=== PATIENT | male | born 1950 | race Caucasian/White ===

== ENCOUNTER 2018-10-23 13:14 | Inpatient (IN) | payer MEDICARE ==
--- NOTE | 2018-10-23 13:29 | ED ---
Respiratory - HPI Summary HPI Summary: Pt is a 68 y/o male who presents to the ED c/o SOB. Several weeks ago he was diagnosed with a right-sided PTX at 20-30% at [facility] without intervention. Today he went to his PCP for increased SOB and constant cough and was sent to [place]. Pt rates his pain as a 4/10 in severity in his right side , and states coughing and movement make the pain worse. An XR at [facility] revealed a worsening PTX, so he was sent here for a possible chest tube placement. He is on 3L O2 NC at home. PMHx COPD, sleep apnea, sarcoidosis. Pt is a former smoker. - History of Current Complaint Chief Complaint: EDShortnessOfBreath Stated Complaint: ACUTE SOB PER EMS Time Seen by Provider: 10/23/18 13:24 Hx Obtained From: Patient Onset/Duration: Gradual Onset, Lasting Weeks - 2-3, Worse Since Timing: Constant Current Severity: Moderate Pain Intensity: 4 Character: Cough (Nonproductive), Dyspnea at Rest Sputum Amount: None Aggravating Factor(s): Movement, Other - coughing Alleviating Factor(s): Nothing Associated Signs and Symptoms: SOB Related History: Similar Episode/Dx as - diagnosed PTX - Allergy/Home Medications Allergies/Adverse Reactions: Allergies Allergy/AdvReac Type Severity Reaction Status Date / Time guaifenesin [From Mucinex] Allergy Rash And Verified 10/23/18 13:40 Itching Iodinated Contrast- Oral and Allergy Rash And Verified 10/23/18 13:40 IV Dye Itching Home Medications: Home Medications Albuterol HFA INHALER* [Ventolin HFA Inhaler*] 1 puff INH QID 10/23/18 [History Confirmed 10/23/18] Benzonatate CAP* [Tessalon 100 MG CAP*] 200 mg PO TID 10/23/18 [History Confirmed 10/23/18] Carvedilol TAB* [Coreg TAB*] 25 mg PO DAILY 10/23/18 [History Confirmed 10/23/18 ] Fluticasone-Salmeterol 250-50* [Advair Diskus 250-50*] 1 puff INH BID 10/23/18 [ History Confirmed 10/23/18] Insulin Detemir [Levemir Flextouch] 40 unit SUBCUT 1200 10/23/18 [History Confirmed 10/23/18] Lisinopril TAB* [Prinivil TAB*] 10 mg PO DAILY 10/23/18 [History Confirmed 10/23] Rosuvastatin (NF) [Crestor] 20 mg PO DAILY 10/23/18 [History Confirmed 10/23/18] Sitagliptin Phos/Metformin HCl [Janumet 50-1000 mg] 1 tab PO BID 10/23/18 [ History Confirmed 10/23/18] oxyCODONE/Acetamin 5/325 MG* [Percocet 5/325 TAB*] 1 tab PO Q4H PRN 10/23/18 [ History Confirmed 10/23/18] PMH/Surg Hx/FS Hx/Imm Hx Endocrine/Hematology History: Reports: Hx Diabetes, Other Endocrine/ Hematological Disorders - sarcoidosis Cardiovascular History: Reports: Hx Hypertension Respiratory History: Reports: Hx Chronic Obstructive Pulmonary Disease (COPD), Hx Sleep Apnea, Other Respiratory Problems/Disorders - PTX History: Denies: Hx Dialysis, Hx Renal Disease - Surgical History Surgery Procedure, Year, and Place: Lymph node removal right side thoracic cavity 1978, cholecystectomy , appendectomy as a child Infectious Disease History: No Infectious Disease History: Denies: Traveled Outside the [place] in Last 30 Days - Family History Known Family History: Positive: Diabetes - Social History Alcohol Use: None Hx Substance Use: Yes Substance Use Type: Reports: Prescribed Hx Tobacco Use: Yes Smoking Status (MU): Former Smoker Review of Systems Positive: Shortness Of Breath, Cough Positive: Myalgia - pain to right side All Other Systems Reviewed And Are Negative: Yes Physical Exam - Summary Physical Exam Summary: Appearance: The patient is well-nourished in no acute distress and in no acute pain. Skin: The skin is warm and dry and skin color reflects adequate perfusion. HEENT: The head is normocephalic and atraumatic. The pupils are equal and reactive. The conjunctivae are clear and without drainage. Nares are patent and without drainage. Mouth reveals moist mucous membranes and the throat is without erythema and exudate. The external ears are intact. The ear canals are patent and without drainage. The tympanic membranes are intact. Neck: The neck is supple with full range of motion and non-tender. There are no carotid bruits. There is no neck vein distension. Respiratory: Chest is non-tender. Lungs are clear to auscultation and breath sounds are markedly decreased on the right side. Cardiovascular: Heart is regular rate and rhythm. There is no murmur or rub auscultated. There is no peripheral edema and pulses are symmetrical and equal. Abdomen: The abdomen is soft and non-tender. There are normal bowel sounds heard in all four quadrants and there is no organomegaly palpated. Musculoskeletal: There is no back tenderness noted. Extremities are non-tender with full range of motion. There is good capillary refill. There is no peripheral edema or calf tenderness elicited. Neurological: Patient is alert and oriented to person, place and time. The patient has symmetrical motor strength in all four extremities. Cranial nerves are grossly intact. Deep tendon reflexes are symmetrical and equal in all four extremities. Psychiatric: The patient has an appropriate affect and does not exhibit any anxiety or depression. Triage Information Reviewed: Yes Vital Signs On Initial Exam: Initial Vitals Temp Pulse Resp BP Pulse Ox 98.0 F 85 26 148/76 90 10/23/18 13:19 10/23/18 13:19 10/23/18 13:19 10/23/18 13:19 10/23/18 13:19 Vital Signs Reviewed: Yes Diagnostics - Vital Signs Vital Signs Temp Pulse Resp BP Pulse Ox 10/23/18 13:19 98.0 F 85 26 148/76 90 - Laboratory Lab Statement: Any lab studies that have been ordered have been reviewed, and results considered in the medical decision making process. - Radiology CXR Radiology Interpretation Completed By: Radiologist Summary of Radiographic Findings: Persistent large RIGHT pneumothorax without associated mediastinal shift. ED physician reviewed radiology report. Disposition - Course Course Of Treatment: Mr. Khalil was sent over from [place] for a right-sided pneumothorax. He apparently was short of breath and went to the hospital on the first where he was noted to have a right-sided pneumothorax that was moderate. He was kept overnight and discharged. A repeat chest x-ray on the sixth still showed a moderate pneumothorax. He got more short of breath and went to the emergency department today where he was noted to have worsened pneumothorax. He was transferred over here for chest tube. Dr. Crenshaw was contacted came to the department and placed a Heimlich valve. He recommended admission to the hospitalist service overnight. - Diagnoses Provider Diagnoses: Pneumothorax - Physician Notifications Discussed Care Of Patient With: Linus Crenshaw Time Discussed With Above Provider: 17:10 Instructed by Provider To: Other - Dr. Crenshaw placed a Heimlich valve. He recommends admission and to get a second CXR in an hour to check for improvement. Dr. Arroyo accepts pt for admission. Discharge - Sign-Out/Discharge Documenting (check all that apply): Patient Departure - Admit Patient Received Moderate/Deep Sedation with Procedure: No - Discharge Plan Condition: Improved Disposition: ADMITTED TO [facility] Referrals: Josh Robert MD [Primary Care Provider] - - Billing Disposition and Condition Condition: IMPROVED Disposition: Admitted to [facility] - Attestation Statements Document Initiated by Bubbaibe: Yes Documenting Scribe: Allie Rubio Provider For Whom Scribe is Documenting (Include Credential): Manan Mercado MD Scribe Attestation: Allie Escalante, scribed for Manan Mercado MD on 10/23/18 at 1808. Scribe Documentation Reviewed: Yes Provider Attestation: The documentation as recorded by the Allie samano accurately reflects the service I personally performed and the decisions made by , Manan Mercado MD Status of Scribe Document: Viewed
[2018-10-23] MEDS ORDERED: Benzonatate CAP* 100 MG PO ONE (13:30)
[2018-10-23] MEDS ORDERED: Morphine 10 MG/ML VIAL (1 ml) IV ONE (17:41)
[2018-10-23] MEDS ORDERED: Acetaminophen TAB* 325 MG PO PRN (20:57)
[2018-10-23] MEDS ORDERED: Benzonatate CAP* 100 MG PO PRN (20:59)
[2018-10-23] MEDS ORDERED: Dextrose 50% Syringe 50 ML* 25 GM/50 ML SYRINGE IV PUSH PRN (21:14)
[2018-10-23] MEDS: oxyCODONE TAB* 5 MG TAB PO PRN (22:03)
--- NOTE | 2018-10-23 23:09 | HP ---
CC: Dr. Mildred Robert * HISTORY AND PHYSICAL: DATE OF ADMISSION: 10/23/18 PRIMARY CARE PROVIDER: Dr. Mildred Robert. CHIEF COMPLAINT: Shortness of breath. HISTORY OF PRESENT ILLNESS: Mr. Khalil is a 68-year-old male who states approximately 2 weeks ago he was feeling quite short of breath and was started on antibiotics for presumed bronchitis. He states that they did not help and a week later, he went and saw his primary, at which time he had a chest x-ray obtained. This showed a pneumothorax. The patient was admitted to [facility] where he was observed overnight. He was then subsequently discharged home with Mar Santos and for a followup x-ray this past Friday. The patient states that he did have the followup x-ray this past Friday, which was 10/21/18. He had a followup appointment with his PCP today at 11 a.m., but was feeling quite poor at that point. He told his he did not want to go; however, she essentially forced him to go. It was noted on the chest x-ray from this past Friday that his pneumothorax was worse. He could not stop coughing. He was sent to [place] [facility], where again another x-ray was performed which again showed worsening of the pneumothorax. At that point, he was sent to [facility] for evaluation. The patient was seen in the ER by Dr. Crenshaw, who placed a Heimlich valve. The patient states approximately 10 minutes after the insertion of the Heimlich valve, his shortness of breath and cough dramatically improved. He states at this point, he is feeling pretty decent, but he does have some intermittent pain in the anterior chest at the site of the chest tube insertion. PAST MEDICAL HISTORY: 1. Type 2 diabetes. 2. COPD. 3. Hypertension. 4. Hyperlipidemia. PAST SURGICAL HISTORY: 1. Mediastinal lymph node biopsy. 2. Cholecystectomy. 3. Appendectomy. 4. Left rotator cuff repair. MEDICATIONS: 1. Levemir 40 units subcutaneous daily at noon. 2. Crestor 20 mg p.o. daily. 3. Coreg 25 mg p.o. daily. 4. Lisinopril 10 mg p.o. daily. 5. Janumet one tab p.o. b.i.d. 6. Aspirin 81 mg p.o. daily. 7. Percocet 5/325 one tab p.o. q.4 hours p.r.n. pain. 8. Tessalon 200 mg p.o. t.i.d. 9. Albuterol 1 puff inhaled 4 times daily. 10. Advair 250/50 one puff inhaled twice daily. ALLERGIES: CT CONTRAST and MUCINEX. FAMILY HISTORY: Mom at the age of 75; she had heart disease and diabetes. Dad is living; he is 96 and healthy, but he has been having a lot of problems with falls recently. SOCIAL HISTORY: The patient is a former smoker; he quit approximately 15 years ago. He does not drink alcohol. He worked for the [employer]. He is . He has 2 children. His , Jackelyn, is his healthcare proxy. REVIEW OF SYSTEMS: The patient admitted to fevers at the onset of his symptoms approximately 2 weeks ago, up until about 1 week ago. No anorexia. He does have chest pain now and prior to the chest tube being inserted, had chest discomfort at the right lateral ribs. No lower extremity edema. He did admit to cough and shortness of breath prior to the insertion of the chest tube. He has had intermittent nausea. He had diarrhea couple days ago. No abdominal pain. No hematochezia. No hematuria. No dysuria. No focal weakness or sensory loss. He states that his left eye has been irritated today. There has been crusting of the eyelids together due to drainage from the eye. He denies any dysphagia. No joint pains or muscles pains out of the ordinary. No rashes. No anxiety or depression. PHYSICAL EXAMINATION GENERAL: The patient is a well-developed, elderly male, seen sitting up in the stretcher, in no acute distress. VITAL SIGNS: Blood pressure 121/73, pulse 78, respirations 22, temp 98.0, O2 sat 97% on reported 3 L, though the nasal cannula prongs are not in the nares, but off to the side. HEENT: Pupils are equal and round. Extraocular muscles are intact. There is slight injection of the left conjunctiva. There is crusted drainage noted along the lashes of the left eye. Oropharynx is clear. Oral mucosa is moist. The patient wears upper dentures. He is edentulous on the bottom. There is no submandibular, cervical or supraclavicular adenopathy. Thyroid is not enlarged. No thyroid nodules noted. PULMONARY: Breath sounds are full in all lung quinn. There are few crackles at the bases bilaterally. CARDIAC: Normal S1 and S2. Regular rate and rhythm. I do not appreciate any murmurs. There is no lower extremity edema. ABDOMEN: Bowel sounds present. Abdomen is soft, nontender, and nondistended. MUSCULOSKELETAL: There is no cyanosis or clubbing of the digits. There is full active range of motion of all 4 extremities. SKIN: Warm and dry. There are no rashes. The patient has the Heimlich valve exiting the right anterior chest wall. There is a scant amount of bloody drainage noted on the dressing. NEURO: Cranial nerves II through XII are grossly intact. Sensation is intact to light touch throughout. Strength is 5/5 and symmetric in both upper and lower extremities bilaterally. PSYCH: The patient is alert. He is oriented x3. Affect appears appropriate. DIAGNOSTIC STUDIES/LAB DATA: Labs, none. Chest x-ray initially revealed a persistent large right pneumothorax with associated mediastinal shift. Subsequent chest x-ray after Heimlich valve insertion revealed chest tube on the right with full expansion of the lung. This is to my interpretation. ASSESSMENT AND PLAN: Mr. Khalil is a 68-year-old male with a known history of chronic obstructive pulmonary disease who approximately 2 weeks ago became ill with a respiratory illness and 1 week ago was diagnosed with a pneumothorax, which has persisted and worsened over the last 1 week, now requiring Heimlich valve insertion. 1. Spontaneous pneumothorax. I suspect the patient's symptoms right along were related to a spontaneous pneumothorax. The patient has now had a Heimlich valve inserted by Dr. Crenshaw. The patient will be admitted under observation status to monitor overnight. The patient has been instructed that if he develops any sudden onset of chest pain or shortness of breath, he is to alert his nurse. The patient does have scant bloody drainage on the dressing and this was monitored overnight. If stable, the patient may be able to be discharged home tomorrow with the Heimlich valve in place to then follow up in the surgical office as an outpatient. He will have p.r.n. Tylenol, oxycodone, and morphine for pain control. 2. Type 2 diabetes. I am going to maintain the patient on his usual regimen of long-acting insulin (the patient takes Levemir at home, but we will convert to glargine in the hospital) daily as well as Januvia/metformin. Glucoses will be monitored a.c. and h.s. and he will have a Lispro sliding scale. 3. Hypertension. The patient's blood pressure is under good control. He will continue on his usual home medication regimen. 4. Possible bacterial conjunctivitis. The patient will be started on polymyxin - trimethoprim ophthalmic drops 1 drop 4 times daily to the left eye. 5. Hyperlipidemia. Continue statin. 6. DVT prophylaxis. According to the Adult Thrombosis Prophylaxis Risk Factor Assessment Guide, the patient has a total risk factor score of 3, making him high risk. For now, ambulation alone will be utilized as DVT prophylaxis as I anticipate the patient being discharged home tomorrow if all goes as planned and there is bloody drainage on the dressing and I would like to ensure that this is stable prior to initiating chemical prophylaxis. 7. Code status is full. TIME SPENT: Sixty-five minutes were spent admitting this patient. [id number]/ROWAN #: [id number] CORRIE
[2018-10-23] MEDS: metFORMIN* 1,000 MG TAB PO SCH (23:34)
[2018-10-23] MEDS: CMCS:Sitagliptin (NF) 50 MG TAB PO SCH (23:34)
[2018-10-23] MEDS: Polymyx/Trimethoprim OPTH* 10 ML BTL LEFT EYE SCH (23:35)
[2018-10-24] MEDS: Albuterol HFA INHALER* 8 gm MDI INH SCH ×5 (04:01→19:18)
[2018-10-24] MEDS: Mometasone/Formoter 200/5 MDI INH SCH ×3 (04:01→19:18)
[2018-10-24] MEDS: Insulin LISPRO* 1 UNITS UNIT SUBCUT SCH ×4 (09:06→21:52)
[2018-10-24] MEDS: Aspirin 81 mg CHEW TAB* 81 MG TAB.CHEW PO SCH (09:12)
[2018-10-24] MEDS: CMCS:Sitagliptin (NF) 50 MG TAB PO SCH ×2 (09:13→23:13)
[2018-10-24] MEDS: metFORMIN* 1,000 MG TAB PO SCH ×2 (09:14→23:12)
[2018-10-24] MEDS: Carvedilol TAB* 25 MG PO SCH (09:14)
[2018-10-24] MEDS: Atorvastatin* 40 MG TAB PO SCH (09:14)
[2018-10-24] MEDS: Lisinopril TAB* 10 MG PO SCH (09:14)
[2018-10-24] MEDS: Polymyx/Trimethoprim OPTH* 10 ML BTL LEFT EYE SCH ×4 (09:15→23:13)
[2018-10-24] MEDS: oxyCODONE TAB* 5 MG TAB PO PRN (09:15)
[2018-10-24] MEDS: Insulin GLARGINE(*) 1 UNITS UNIT SUBCUT SCH (12:57)
--- NOTE | 2018-10-24 13:24 | PN ---
Subjective Date of Service: 10/24/18 Interval History: Patient seen and examined. Desaturations with ambulation while on O2. Denies chest pain, still feels winded and SOB at times. Denies chest pain. Has some discomfort and Heimlich valve insertion site. No further complaints. Objective Active Medications: Acetaminophen (Tylenol Tab*) 650 mg PO Q4H PRN PRN Reason: PAIN Albuterol (Ventolin Hfa Inhaler*) 2 puff INH QID [facility] Last Admin: 10/24/18 08:22 Dose: 2 puff Aspirin (Aspirin 81 Mg Chew Tab*) 81 mg PO DAILY [facility] Last Admin: 10/24/18 09:12 Dose: 81 mg Atorvastatin Calcium (Lipitor*) 40 mg PO DAILY [facility] Last Admin: 10/24/18 09:14 Dose: 40 mg Benzonatate (Tessalon Cap*) 200 mg PO TID PRN PRN Reason: cough Last Admin: 10/24/18 09:12 Dose: 200 mg Carvedilol (Coreg Tab*) 25 mg PO DAILY [facility] Last Admin: 10/24/18 09:14 Dose: 25 mg Dextrose (D50w Syringe 50 Ml*) 12.5 gm IV PUSH .FOR FS < 60 - SS PRN PRN Reason: FS < 60 Insulin Glargine (Lantus(*)) 40 units SUBCUT 1200 [facility] Last Admin: 10/24/18 12:57 Dose: 40 units Insulin Human Lispro (Humalog*) 0 units SUBCUT ACHS [facility]; Protocol Last Admin: 10/24/18 12:58 Dose: 2 unit Lisinopril (Prinivil Tab*) 10 mg PO DAILY [facility] Last Admin: 10/24/18 09:14 Dose: 10 mg Metformin HCl (Glucophage*) 1,000 mg PO BID [facility] Last Admin: 10/24/18 09:14 Dose: 1,000 mg Mometasone Furoate/Formoterol Fumar (Dulera 200/5 Mdi*) 2 puff INH BID [facility] Last Admin: 10/24/18 08:22 Dose: 2 puff Morphine Sulfate (Morphine Inj ((Syringe))*) 2 mg IV Q4H PRN PRN Reason: PAIN - MILD Oxycodone HCl (Roxycodone Tab*) 5 mg PO Q4H PRN PRN Reason: PAIN Last Admin: 10/24/18 09:15 Dose: 5 mg Polymyxin/Trimethoprim Sulfate (Polytrim Ophth*) 1 drop LEFT EYE QID [facility] Last Admin: 10/24/18 12:59 Dose: 1 drop Sitagliptin Phosphate (Januvia (Nf)) 50 mg PO BID [facility] Last Admin: 10/24/18 09:13 Dose: 50 mg Vital Signs - 8 hr 10/24/18 10/24/18 10/24/18 07:34 08:00 09:15 Temperature 97.8 F Pulse Rate 66 Respiratory 20 22 22 Rate Blood Pressure 129/58 (mmHg) O2 Sat by Pulse 96 Oximetry 10/24/18 10/24/18 10:25 11:17 Temperature 98.2 F Pulse Rate 67 Respiratory 25 18 Rate Blood Pressure 122/51 (mmHg) O2 Sat by Pulse 88 95 Oximetry Oxygen Devices in Use Now: Nasal Cannula Appearance: alert, NAD Eyes: No Scleral Icterus, PERRLA Ears/Nose/Mouth/Throat: NL Teeth, Lips, Gums, Mucous Membranes Moist Neck: NL Appearance and Movements; NL JVP, Trachea Midline Respiratory: Symmetrical Chest Expansion and Respiratory Effort, - - clear at the apices, diminished bases, no wheeze Cardiovascular: NL Sounds; No Murmurs; No JVD, RRR, No Edema Abdominal: NL Sounds; No Tenderness; No Distention Extremities: No Edema, No Clubbing, Cyanosis Skin: No Rash or Ulcers Neurological: Alert and Oriented x 3, NL Sensation Nutrition: Taking PO's Diagnostic Imaging: Patient Name: MICAH QUINTANA Medical Record#: [id number] Ordering Physician: Manan Mercado MD Acct.#: [id number] : 1950 Age: 68 Sex: M Location: EMERGENCY DEPARTMENT Exam Date: 10/23/18 1619 ADM Status: REG ER Order Information: CHEST PA & LAT 2 VWS Accession Number: [id number] CPT: 22554 INDICATION: Shortness of breath. COPD. Pneumothorax. COMPARISON: October 23, 2018 1132 hours exam from [facility]. TECHNIQUE: Dual energy PA and routine lateral views of the chest were obtained. REPORT: Large RIGHT pneumothorax with approximate 75% loss of lung volume is grossly unchanged. Negative for mediastinal shift. Staple line at the RIGHT hilar region noted. The LEFT lung is remarkable for moderate prominence of the interstitial markings in the mid to basilar aspect. Small dependent RIGHT pleural effusion. Negative for cardiomegaly. Unremarkable central pulmonary vasculature. Surgical anchors at the LEFT humeral head. IMPRESSION: #. Persistent large RIGHT pneumothorax without associated mediastinal shift. Assess/Plan/Problems-Billing Assessment: This is a 68 year old male transferred from [facility] for recurrent right spontaneous pneumothorax. - Patient Problems (1) Spontaneous pneumothorax Code(s): J93.83 - OTHER PNEUMOTHORAX SNOMED Code(s): 71288985 Comment: - Heimlich valve inserted by surgery, chest tube on low suction - Remains hypoxic, required 3L NC, desat to 87-88% with ambulation - Supportive care (2) DMII (diabetes mellitus, type 2) Comment: - Lispro, lantus, metformin and januvia - CC diet - BG stable, continue accuchecks ACHS (3) COPD (chronic obstructive pulmonary disease) Code(s): J44.9 - CHRONIC OBSTRUCTIVE PULMONARY DISEASE, UNSPECIFIED SNOMED Code(s): 78965772 Comment: - Continue inhalers, states cough has improved; had bronchitis which per patient report is resolving - Tessalon PRN (4) HTN (hypertension) Code(s): I10 - ESSENTIAL (PRIMARY) HYPERTENSION SNOMED Code(s): 64532848 Comment: - Continue carvedilol, lisinopril and ASA (5) Dyslipidemia Code(s): E78.5 - HYPERLIPIDEMIA, UNSPECIFIED SNOMED Code(s): 513236887 Comment: - Continue statin and ASA (6) DVT (deep venous thrombosis) Code(s): I82.409 - ACUTE EMBOLISM AND THOMBOS UNSP DEEP VN UNSP LOWER EXTREMITY SNOMED Code(s): 360152316 Comment: - SCDs and ambulate as tolerated (7) Full code status Code(s): Z78.9 - OTHER SPECIFIED HEALTH STATUS SNOMED Code(s): 491571848 Status and Disposition: Inpatient, re-evaluate for DC tomorrow if hypoxia resolves. Will need follow up with surgery in office Friday.
[2018-10-24] MEDS ORDERED: diPHENhydraMINE PO* 25 MG PO ONE (21:02)
--- NOTE | 2018-10-24 21:05 | PN ---
Progress Note - Progress Note Date of Service: 10/24/18 Note: Surgery Progress Note S: Patient says he continues to have baseline shortness of breath and fatigue with ambulation. Otherwise doing well O: Vital Signs: Temp Pulse Resp BP Pulse Ox 97.5 F 71 18 105/45 95 10/24/18 19:39 10/24/18 19:39 10/24/18 19:39 10/24/18 19:39 10/24/18 19:39 Intake & Output 10/24/18 10/24/18 10/24/18 06:59 14:59 22:59 Intake Total 0 960 120 Balance 0 960 120 Intake: Oral 0 960 120 Physical exam: right chest Heimlich tube in place, to suction with no air leak Radiology: CXR reviewed, no evidence of PTX A/P: 68 M with COPD, s/p R PTX and placement of right heimlich tube, with resolution on CXR - Patient desaturations may be baseline do to his chronic COPD and baseline reported SOB and fatigue at home. No air leak or evidence of PTX of CXR. - When medically stable can dc home with heimlich and FU in the office for removal
[2018-10-25] MEDS: Albuterol HFA INHALER* 8 gm MDI INH SCH ×4 (07:47→21:01)
[2018-10-25] MEDS: Mometasone/Formoter 200/5 MDI INH SCH ×2 (07:48→21:01)
[2018-10-25] MEDS: Insulin LISPRO* 1 UNITS UNIT SUBCUT SCH ×4 (08:06→21:44)
[2018-10-25] MEDS: SITAGLIPTIN 25 MG PO SCH ×2 (09:26→21:35)
[2018-10-25] MEDS: Aspirin 81 mg CHEW TAB* 81 MG TAB.CHEW PO SCH (09:26)
[2018-10-25] MEDS: Atorvastatin* 40 MG TAB PO SCH (09:26)
[2018-10-25] MEDS: metFORMIN* 1,000 MG TAB PO SCH ×2 (09:26→21:35)
[2018-10-25] MEDS: Lisinopril TAB* 10 MG PO SCH (09:26)
[2018-10-25] MEDS: Carvedilol TAB* 25 MG PO SCH (09:26)
[2018-10-25] MEDS: Polymyx/Trimethoprim OPTH* 10 ML BTL LEFT EYE SCH ×4 (09:26→21:35)
[2018-10-25] MEDS: CMCS:Sitagliptin (NF) 50 MG TAB PO SCH (10:33)
--- NOTE | 2018-10-25 11:21 | PN ---
Subjective Date of Service: 10/25/18 Interval History: Mr. Khalil is feeling ok today. He is tired this morning. He reports pain with inspiration, worse w/ deep inspiration. Denies cough, SOB, CP. He has been up ambulating with nursing staff. Nurse reports that he dropped to the low 80s on RA while ambulating, but did not have any dyspnea. Family History: Unchanged from Admission Social History: Unchanged from Admission Past Medical History: Unchanged from Admission Objective Active Medications: Acetaminophen (Tylenol Tab*) 650 mg PO Q4H PRN PAIN Albuterol (Ventolin Hfa Inhaler*) 2 puff INH QID [facility] Aspirin (Aspirin 81 Mg Chew Tab*) 81 mg PO DAILY [facility] Atorvastatin Calcium (Lipitor*) 40 mg PO DAILY [facility] Benzonatate (Tessalon Cap*) 200 mg PO TID PRN cough Carvedilol (Coreg Tab*) 25 mg PO DAILY [facility] Dextrose (D50w Syringe 50 Ml*) 12.5 gm IV PUSH .FOR FS < 60 - SS PRN FS < 60 Insulin Glargine (Lantus(*)) 40 units SUBCUT 1200 [facility] Insulin Human Lispro (Humalog*) 0 units SUBCUT ACHS [facility]; Protocol Lisinopril (Prinivil Tab*) 10 mg PO DAILY [facility] Metformin HCl (Glucophage*) 1,000 mg PO BID [facility] Mometasone Furoate/Formoterol Fumar (Dulera 200/5 Mdi*) 2 puff INH BID [facility] Morphine Sulfate (Morphine Inj ((Syringe))*) 2 mg IV Q4H PRN PAIN - MILD Oxycodone HCl (Roxycodone Tab*) 5 mg PO Q4H PRN PAIN Polymyxin/Trimethoprim Sulfate (Polytrim Ophth*) 1 drop LEFT EYE QID [facility] Sitagliptin Phosphate (Januvia (Nf)) 50 mg PO BID [facility] Vital Signs - 8 hr 10/25/18 10/25/18 10/25/18 03:22 06:49 08:00 Temperature 97.9 F 99.1 F Pulse Rate 76 72 Respiratory 19 18 20 Rate Blood Pressure 107/42 116/55 (mmHg) O2 Sat by Pulse 98 97 Oximetry Oxygen Devices in Use Now: Nasal Cannula - 2L Appearance: Elderly male laying in bed in NAD Eyes: No Scleral Icterus Ears/Nose/Mouth/Throat: Mucous Membranes Moist Neck: NL Appearance and Movements; NL JVP, Trachea Midline Respiratory: Symmetrical Chest Expansion and Respiratory Effort, Clear to Auscultation, - - Chest tube in place to right chest wall Cardiovascular: NL Sounds; No Murmurs; No JVD, RRR Abdominal: NL Sounds; No Tenderness; No Distention Skin: - - Chest tube dressing intact Neurological: Alert and Oriented x 3, NL Gait Lines/Tubes/Other Access: Clean, Dry and Intact Peripheral IV Nutrition: Taking PO's Assess/Plan/Problems-Billing Assessment: Mr. Khalil is a 68 yo M with PMH of DM, HTN, HLD, and COPD who was transferred from [facility] for recurrent right spontaneous pneumothorax requiring a chest tube. - Patient Problems (1) Spontaneous pneumothorax Code(s): J93.83 - OTHER PNEUMOTHORAX Comment: - Heimlich valve inserted by surgery, chest tube on low suction - Surgery following; he can be d/c'd home with Heimlich valve when stable and will need outpt f/u for removal - Remains hypoxic, required 2L NC, desat to 83-85% with ambulation - Continue morphine (2) COPD (chronic obstructive pulmonary disease) Code(s): J44.9 - CHRONIC OBSTRUCTIVE PULMONARY DISEASE, UNSPECIFIED Comment: - Had bronchitis which per patient report and cough is improved - Continue Tessalon, Dulera, albuterol (3) DMII (diabetes mellitus, type 2) Comment: - BG under good control, mostly <150 - Recent A1c from August was 7% - Continue Lispro, Lantus, metformin, Januvia (4) HTN (hypertension) Code(s): I10 - ESSENTIAL (PRIMARY) HYPERTENSION Comment: - Normotensive, SBP 100-110s - Continue carvedilol, lisinopril (5) Dyslipidemia Code(s): E78.5 - HYPERLIPIDEMIA, UNSPECIFIED Comment: - Continue atorvastatin, aspirin (6) DVT prophylaxis Comment: - SCDs (7) Full code status Code(s): Z78.9 - OTHER SPECIFIED HEALTH STATUS Comment: Status and Disposition: Inpatient. Anticipate d/c home when hypoxia resolves. Will need follow up with surgery in office for chest tube removal. Attending: Zamzam Otero
[2018-10-25] MEDS: Insulin GLARGINE(*) 1 UNITS UNIT SUBCUT SCH (13:03)
[2018-10-25] MEDS ORDERED: NS 0.9% 1000 ML** 1,000 ML IV ONE (15:38)
[2018-10-25 16:31] LABS: ABS Basophils 0.1 10^3/ul (0-0.2); ABS Eosinophils 0.4 10^3/ul (0-0.6); ABS Lymphocytes 2.5 10^3/ul (1.0-4.8); ABS Monocytes 0.7 10^3/ul (0-0.8); ABS Neutrophils 3.2 10^3/ul (1.5-7.7); ABS Nucleated RBC 0 10^3/ul; Eosinophil % 5.2 %; Hematocrit 34 % (42-52); Hemoglobin 11.3 g/dl (14.0-18.0); Lymphocyte % 36.3 %; Mean Corpuscular HGB Conc 34 g/dl (31-36); Mean Corpuscular Hemoglobin 31 pg (27-31); Mean Corpuscular Volume 93 fL (80-94); Mean Platelet Volume 7.4 fL (7.4-10.4); Nucleated Red Blood Cells % 0.1; Platelet Count 242 10^3/ul (150-450); Red Blood Count 3.63 10^6/ul (4.00-5.40); Red Cell Distribution Width 15 % (10.5-15); White Blood Count 6.8 10^3/ul (3.5-10.8)
[2018-10-25 16:43] LABS: Calcium 8.6 mg/dL (8.6-10.3); EGFR African American 124.9 (>60); EGFR Non-African American 103.3 (>60); Magnesium 1.3 mg/dL (1.9-2.7); Potassium 4.3 mmol/L (3.5-5.0)
[2018-10-25] MEDS ORDERED: Magnesium Sulf 4 GM/100 ML IV* 4,000 MG/100 ML BAG IVPB ONE (17:00)
[2018-10-25] MEDS ORDERED: Melatonin 3 MG TAB PO PRN (17:26)
[2018-10-25] MEDS: oxyCODONE TAB* 5 MG TAB PO PRN (21:36)
[2018-10-26 07:25] LABS: BUN/Creatinine Ratio 20.3 (8-20); Calcium 8.5 mg/dL (8.6-10.3); Magnesium 1.7 mg/dL (1.9-2.7); Potassium 4.6 mmol/L (3.5-5.0)
[2018-10-26] MEDS: Insulin LISPRO* 1 UNITS UNIT SUBCUT SCH ×4 (08:30→21:28)
[2018-10-26] MEDS: Mometasone/Formoter 200/5 MDI INH SCH ×2 (08:35→20:22)
[2018-10-26] MEDS: Albuterol HFA INHALER* 8 gm MDI INH SCH ×4 (08:35→20:22)
[2018-10-26] MEDS ORDERED: Magnesium Sulf 4 GM/100 ML IV* 4,000 MG/100 ML BAG IVPB ONE (08:45)
--- NOTE | 2018-10-26 09:16 | PN ---
Subjective Date of Service: 10/26/18 Interval History: Mr. Khalil is feeling well today. He offers no complaints except for feeling itchy at the chest tube insertion site. Denies pain at the site. No CP or SOB. Occasional cough with white sputum. Has not been up ambulating yet today. Appetite good. Denies N/V. Family History: Unchanged from Admission Social History: Unchanged from Admission Past Medical History: Unchanged from Admission Objective Active Medications: Acetaminophen (Tylenol Tab*) 650 mg PO Q4H PRN PAIN Albuterol (Ventolin Hfa Inhaler*) 2 puff INH QID [facility] Aspirin (Aspirin 81 Mg Chew Tab*) 81 mg PO DAILY [facility] Atorvastatin Calcium (Lipitor*) 40 mg PO DAILY [facility] Benzonatate (Tessalon Cap*) 200 mg PO TID PRN cough Carvedilol (Coreg Tab*) 25 mg PO DAILY [facility] Dextrose (D50w Syringe 50 Ml*) 12.5 gm IV PUSH .FOR FS < 60 - SS PRN FS < 60 Magnesium Sulfate (Magnesium Sulf 4 Gm/100 Ml Iv*) 4,000 mg in 100 mls @ 33.333 mls/hr IVPB ONCE ONE Insulin Glargine (Lantus(*)) 40 units SUBCUT 1200 [facility] Insulin Human Lispro (Humalog*) 0 units SUBCUT ACHS [facility]; Protocol Lisinopril (Prinivil Tab*) 10 mg PO DAILY [facility] Melatonin (Melatonin) 3 mg PO BEDTIME PRN; Protocol SLEEP Metformin HCl (Glucophage*) 1,000 mg PO BID [facility] Mometasone Furoate/Formoterol Fumar (Dulera 200/5 Mdi*) 2 puff INH BID [facility] Morphine Sulfate (Morphine Inj ((Syringe))*) 2 mg IV Q4H PRN PAIN - MILD Oxycodone HCl (Roxycodone Tab*) 5 mg PO Q4H PRN PAIN Polymyxin/Trimethoprim Sulfate (Polytrim Ophth*) 1 drop LEFT EYE QID [facility] Sitagliptin Phosphate (Januvia (Nf)) 50 mg PO BID [facility] Vital Signs - 8 hr 10/26/18 10/26/18 10/26/18 03:53 08:21 08:36 Temperature 98.3 F 97.6 F Pulse Rate 66 67 74 Respiratory 16 16 18 Rate Blood Pressure 131/64 144/65 (mmHg) O2 Sat by Pulse 97 97 97 Oximetry Oxygen Devices in Use Now: Nasal Cannula - 2L Appearance: Elderly male laying in bed in NAD Eyes: No Scleral Icterus Ears/Nose/Mouth/Throat: Mucous Membranes Moist Neck: NL Appearance and Movements; NL JVP, Trachea Midline Respiratory: Symmetrical Chest Expansion and Respiratory Effort, Clear to Auscultation, - - Left upper chest tube in place Cardiovascular: NL Sounds; No Murmurs; No JVD, RRR Abdominal: NL Sounds; No Tenderness; No Distention Extremities: No Edema Neurological: Alert and Oriented x 3 Lines/Tubes/Other Access: Clean, Dry and Intact Peripheral IV Nutrition: Taking PO's Result Diagrams: 10/25/18 16:17 10/26/18 06:56 Assess/Plan/Problems-Billing Assessment: Mr. Khalil is a 68 yo M with PMH of DM, HTN, HLD, and COPD who was transferred from [facility] for recurrent right spontaneous pneumothorax requiring a chest tube. - Patient Problems (1) Spontaneous pneumothorax Code(s): J93.83 - OTHER PNEUMOTHORAX Comment: - Heimlich valve inserted by surgery, chest tube on low suction - Surgery following; he can be d/c'd home with Heimlich valve when stable and will need outpt f/u for removal - Remains hypoxic, required 2L NC, desat to 83-85% with ambulation yesterday; will need to attempt another walk test today - Continue morphine (2) Hypomagnesemia Code(s): E83.42 - HYPOMAGNESEMIA Comment: - Repleted yesterday and again today - Recheck in the AM (3) COPD (chronic obstructive pulmonary disease) Code(s): J44.9 - CHRONIC OBSTRUCTIVE PULMONARY DISEASE, UNSPECIFIED Comment: - Had bronchitis per patient report and cough is improved - Continue Tessalon, Dulera, albuterol (4) DMII (diabetes mellitus, type 2) Comment: - BG under good control, mostly <150 - Recent A1c from August was 7% - Continue Lispro, Lantus, metformin, Januvia (5) HTN (hypertension) Code(s): I10 - ESSENTIAL (PRIMARY) HYPERTENSION Comment: - Episode of hypotension yesterday evening which responded to IVF bolus; now slightly hypertensive with SBP 140s - Continue carvedilol, lisinopril (6) Dyslipidemia Code(s): E78.5 - HYPERLIPIDEMIA, UNSPECIFIED Comment: - Continue atorvastatin (7) DVT prophylaxis Comment: - SCDs (8) Full code status Code(s): Z78.9 - OTHER SPECIFIED HEALTH STATUS Comment: Status and Disposition: Inpatient. Anticipate d/c home when hypoxia resolves. Will need follow up with surgery in office for chest tube removal. Attending: Zamzam Otero
[2018-10-26] MEDS: Atorvastatin* 40 MG TAB PO SCH (10:54)
[2018-10-26] MEDS: Carvedilol TAB* 25 MG PO SCH (10:55)
[2018-10-26] MEDS: Lisinopril TAB* 10 MG PO SCH (10:55)
[2018-10-26] MEDS: SITAGLIPTIN 25 MG PO SCH ×2 (10:55→21:27)
[2018-10-26] MEDS: metFORMIN* 1,000 MG TAB PO SCH ×2 (10:55→21:27)
[2018-10-26] MEDS: Aspirin 81 mg CHEW TAB* 81 MG TAB.CHEW PO SCH (10:55)
[2018-10-26] MEDS: Polymyx/Trimethoprim OPTH* 10 ML BTL LEFT EYE SCH ×4 (10:56→21:28)
[2018-10-26] MEDS: Insulin GLARGINE(*) 1 UNITS UNIT SUBCUT SCH (14:03)
--- NOTE | 2018-10-26 17:42 | PN ---
Progress Note - Progress Note Date of Service: 10/26/18 Note: Surgery Progress: S: no c/o re: SOB or chest pain Current Medications Acetaminophen (Tylenol Tab*) 650 mg PO Q4H PRN PRN Reason: PAIN Albuterol (Ventolin Hfa Inhaler*) 2 puff INH QID [facility] Last Admin: 10/26/18 16:37 Dose: 2 puff Aspirin (Aspirin 81 Mg Chew Tab*) 81 mg PO DAILY [facility] Last Admin: 10/26/18 10:55 Dose: 81 mg Atorvastatin Calcium (Lipitor*) 40 mg PO DAILY [facility] Last Admin: 10/26/18 10:54 Dose: 40 mg Benzonatate (Tessalon Cap*) 200 mg PO TID PRN PRN Reason: cough Last Admin: 10/24/18 09:12 Dose: 200 mg Carvedilol (Coreg Tab*) 25 mg PO DAILY [facility] Last Admin: 10/26/18 10:55 Dose: 25 mg Dextrose (D50w Syringe 50 Ml*) 12.5 gm IV PUSH .FOR FS < 60 - SS PRN PRN Reason: FS < 60 Insulin Glargine (Lantus(*)) 40 units SUBCUT 1200 [facility] Last Admin: 10/26/18 14:03 Dose: 40 units Insulin Human Lispro (Humalog*) 0 units SUBCUT ACHS [facility]; Protocol Last Admin: 10/26/18 14:03 Dose: 1 unit Lisinopril (Prinivil Tab*) 10 mg PO DAILY [facility] Last Admin: 10/26/18 10:55 Dose: 10 mg Melatonin (Melatonin) 3 mg PO BEDTIME PRN; Protocol PRN Reason: SLEEP Last Admin: 10/25/18 21:35 Dose: 3 mg Metformin HCl (Glucophage*) 1,000 mg PO BID [facility] Last Admin: 10/26/18 10:55 Dose: 1,000 mg Mometasone Furoate/Formoterol Fumar (Dulera 200/5 Mdi*) 2 puff INH BID [facility] Last Admin: 10/26/18 08:35 Dose: 2 puff Morphine Sulfate (Morphine Inj ((Syringe))*) 2 mg IV Q4H PRN PRN Reason: PAIN - MILD Oxycodone HCl (Roxycodone Tab*) 5 mg PO Q4H PRN PRN Reason: PAIN Last Admin: 10/25/18 21:36 Dose: 5 mg Polymyxin/Trimethoprim Sulfate (Polytrim Ophth*) 1 drop LEFT EYE QID [facility] Last Admin: 10/26/18 14:03 Dose: 1 drop Sitagliptin Phosphate (Januvia (Nf)) 50 mg PO BID [facility] Last Admin: 10/26/18 10:55 Dose: 50 mg O: Vital Signs - 8 hr 10/26/18 10/26/18 11:36 12:56 Temperature 98.2 F Pulse Rate 80 80 Respiratory 16 14 Rate Blood Pressure 142/50 (mmHg) O2 Sat by Pulse 96 96 Oximetry Gen: appears comfortable; NAD Heart: reg Lungs: clear to ausc; no A/L evident from Pleurevac; however, there is a positive airleak when suction is removed. No sig drainage. A: persistent airleak, s/p placement of Heimlich chest tube P: will keep off suction and monitor; xray in a.m.; discussed w/ nsg
[2018-10-27] MEDS: Insulin LISPRO* 1 UNITS UNIT SUBCUT SCH ×4 (07:19→21:59)
[2018-10-27 07:52] LABS: Calcium 8.8 mg/dL (8.6-10.3); EGFR African American 155.6 (>60); EGFR Non-African American 128.6 (>60); Magnesium 1.5 mg/dL (1.9-2.7); Potassium 4.5 mmol/L (3.5-5.0)
[2018-10-27] MEDS: Mometasone/Formoter 200/5 MDI INH SCH ×2 (08:42→19:41)
[2018-10-27] MEDS: Albuterol HFA INHALER* 8 gm MDI INH SCH ×5 (08:43→19:38)
[2018-10-27] MEDS ORDERED: Magnesium Sulf 4 GM/100 ML IV* 4,000 MG/100 ML BAG IVPB ONE (08:52)
[2018-10-27] MEDS: Magnesium Oxide TAB* 400 MG PO SCH ×2 (10:09→21:49)
[2018-10-27] MEDS: Lisinopril TAB* 10 MG PO SCH (10:09)
[2018-10-27] MEDS: Atorvastatin* 40 MG TAB PO SCH (10:09)
[2018-10-27] MEDS: metFORMIN* 1,000 MG TAB PO SCH ×2 (10:10→21:49)
[2018-10-27] MEDS: Carvedilol TAB* 25 MG PO SCH (10:10)
[2018-10-27] MEDS: Aspirin 81 mg CHEW TAB* 81 MG TAB.CHEW PO SCH (10:10)
[2018-10-27] MEDS: SITAGLIPTIN 25 MG PO SCH ×2 (10:10→21:49)
[2018-10-27] MEDS: Polymyx/Trimethoprim OPTH* 10 ML BTL LEFT EYE SCH ×4 (10:15→21:49)
--- NOTE | 2018-10-27 12:24 | PN ---
Progress Note - Progress Note Date of Service: 10/27/18 SOAP: Subjective: Pt seen and examined. Feels better than Friday night. Events of last 3 days noted Objective: a f vss on O2nc lungs clear Chest tube: no airleak CXR small apical ptx Tube addressed and seemingly occluded and removed entirely Assessment: PTX mostly resolved Plan: cxr in 1 hr- if worsening ptx than new heimlich valve; if unchanged, repeat in am; if resolved, may discharge home
[2018-10-27] MEDS: Insulin GLARGINE(*) 1 UNITS UNIT SUBCUT SCH (13:04)
--- NOTE | 2018-10-27 15:29 | PN ---
Subjective Date of Service: 10/27/18 Interval History: Mr. Khalil is feeling fine today. He slept well and offers no complaints. He denies SOB or CP. Chest tube has been disconnected from the pleura-vac. Still requiring 2L NC, but has not been up ambulating yet today. Family History: Unchanged from Admission Social History: Unchanged from Admission Past Medical History: Unchanged from Admission Objective Active Medications: Acetaminophen (Tylenol Tab*) 650 mg PO Q4H PRN PAIN Albuterol (Ventolin Hfa Inhaler*) 2 puff INH QID [facility] Aspirin (Aspirin 81 Mg Chew Tab*) 81 mg PO DAILY [facility] Atorvastatin Calcium (Lipitor*) 40 mg PO DAILY [facility] Benzonatate (Tessalon Cap*) 200 mg PO TID PRN cough Carvedilol (Coreg Tab*) 25 mg PO DAILY [facility] Dextrose (D50w Syringe 50 Ml*) 12.5 gm IV PUSH .FOR FS < 60 - SS PRN FS < 60 Insulin Glargine (Lantus(*)) 40 units SUBCUT 1200 [facility] Insulin Human Lispro (Humalog*) 0 units SUBCUT ACHS [facility]; Protocol Lisinopril (Prinivil Tab*) 10 mg PO DAILY [facility] Magnesium Oxide (Magox 400 Tab*) 400 mg PO BID [facility] Melatonin (Melatonin) 3 mg PO BEDTIME PRN; Protocol SLEEP Metformin HCl (Glucophage*) 1,000 mg PO BID [facility] Mometasone Furoate/Formoterol Fumar (Dulera 200/5 Mdi*) 2 puff INH BID [facility] Morphine Sulfate (Morphine Inj ((Syringe))*) 2 mg IV Q4H PRN PAIN - MILD Oxycodone HCl (Roxycodone Tab*) 5 mg PO Q4H PRN PAIN Polymyxin/Trimethoprim Sulfate (Polytrim Ophth*) 1 drop LEFT EYE QID [facility] Sitagliptin Phosphate (Januvia (Nf)) 50 mg PO BID [facility] Vital Signs - 8 hr 10/27/18 10/27/18 10/27/18 08:00 08:22 08:28 Temperature 98.0 F 98.0 F 98 F Pulse Rate 65 65 65 Respiratory 18 22 22 Rate Blood Pressure 129/55 129/55 129/55 (mmHg) O2 Sat by Pulse 97 97 97 Oximetry 10/27/18 10/27/18 08:43 11:26 Temperature 98.0 F Pulse Rate 75 71 Respiratory 22 18 Rate Blood Pressure 131/55 (mmHg) O2 Sat by Pulse 94 98 Oximetry Oxygen Devices in Use Now: Nasal Cannula - 2L Appearance: Middle-aged male laying in bed in NAD Eyes: No Scleral Icterus Ears/Nose/Mouth/Throat: Mucous Membranes Moist Neck: NL Appearance and Movements; NL JVP, Trachea Midline Respiratory: Symmetrical Chest Expansion and Respiratory Effort, Clear to Auscultation Cardiovascular: NL Sounds; No Murmurs; No JVD, RRR Abdominal: NL Sounds; No Tenderness; No Distention Extremities: No Edema Skin: - - Chest tube dressing to RUW Neurological: Alert and Oriented x 3 Lines/Tubes/Other Access: Clean, Dry and Intact Peripheral IV Nutrition: Taking PO's Result Diagrams: 10/28/18 06:10 10/28/18 06:10 Assess/Plan/Problems-Billing Assessment: Mr. Khalil is a 68 yo M with PMH of DM, HTN, HLD, and COPD who was transferred from [facility] for recurrent right spontaneous pneumothorax requiring a chest tube. - Patient Problems (1) Spontaneous pneumothorax Code(s): J93.83 - OTHER PNEUMOTHORAX Comment: - Heimlich valve inserted by surgery - Surgery following; Heimlich was removed earlier today, but repeat CXR showed worsening pneumothorax, so another chest tube will be inserted today - Remains hypoxic, required 2L NC - Continue morphine (2) Hypomagnesemia Code(s): E83.42 - HYPOMAGNESEMIA Comment: - Repleted again today - Recheck in the AM (3) COPD (chronic obstructive pulmonary disease) Code(s): J44.9 - CHRONIC OBSTRUCTIVE PULMONARY DISEASE, UNSPECIFIED Comment: - Had bronchitis per patient report and cough is improved - Continue Tessalon, Dulera, albuterol (4) DMII (diabetes mellitus, type 2) Comment: - BG under good control, mostly <150 - Recent A1c from August was 7% - Continue Lispro, Lantus, metformin, Januvia (5) HTN (hypertension) Code(s): I10 - ESSENTIAL (PRIMARY) HYPERTENSION Comment: - Normotensive, SBP 130s - Continue carvedilol, lisinopril (6) Dyslipidemia Code(s): E78.5 - HYPERLIPIDEMIA, UNSPECIFIED Comment: - Continue atorvastatin (7) DVT prophylaxis Comment: - SCDs (8) Full code status Code(s): Z78.9 - OTHER SPECIFIED HEALTH STATUS Comment: Status and Disposition: Inpatient. Anticipate d/c home when pneumothorax and hypoxia resolve. Attending: Taylor Vaughan
--- NOTE | 2018-10-27 17:12 | PN ---
Progress Note - Progress Note Date of Service: 10/27/18 Note: Right ptx Right Heimlich valve placed Note dictated.
--- NOTE | 2018-10-27 21:06 | OP ---
DATE OF OPERATION: 10/27/18 - ROOM #418 DATE OF : 48 SURGEON: Tico Lozada MD ADMINISTRATIVE RESIDENT: None. ANESTHESIOLOGIST: None. PRE-OP DIAGNOSIS: Right pneumothorax. POST-OP DIAGNOSIS: Right pneumothorax. OPERATIVE PROCEDURE: Placement of right chest Heimlich valve. DESCRIPTION OF PROCEDURE: The patient was supine on the bed side. The right side was confirmed. The site of the previous tube was noted and this area was prepped with antiseptic, draped in a sterile fashion. The patient had a scar from previous surgery in the region. Had previously had 3 ribs removed. He had paradoxical motion of the chest wall in that location. The site of the previous tube was anesthetized with 1% lidocaine. A small alex in the skin was placed and a 22-gauge needle used to aspirate until air pocket was identified. He felt a little fibrotic in the area consistent with the previous surgery and some likely underneath scarring. It took a little manipulation to find this pocket, but ultimately the catheter was placed into the air pocket. Good air return was identified and the catheter was sutured to the skin using silk suture followed by a sterile dressing. It was hooked up to the Heimlich valve and subsequently to the Pleur-evac. He tolerated this well and a chest x-ray will be obtained. Estimated blood loss was 5 mL. [id number]/[facility] #: [id number] MTDD
[2018-10-27] MEDS: Melatonin 3 MG TAB PO SCH (21:50)
[2018-10-27] MEDS: Morphine INJ* 2 MG/ML 1 ML SYRINGE (TWO MG - NEW SYRINGE VERSION) IV PRN (21:56)
[2018-10-28 06:51] LABS: ABS Basophils 0.1 10^3/ul (0-0.2); ABS Eosinophils 0.5 10^3/ul (0-0.6); ABS Lymphocytes 2.5 10^3/ul (1.0-4.8); ABS Monocytes 0.7 10^3/ul (0-0.8); ABS Neutrophils 4.7 10^3/ul (1.5-7.7); ABS Nucleated RBC 0 10^3/ul; Eosinophil % 6.4 %; Hematocrit 36 % (42-52); Hemoglobin 12.1 g/dl (14.0-18.0); Lymphocyte % 29.5 %; Mean Corpuscular HGB Conc 34 g/dl (31-36); Mean Corpuscular Hemoglobin 31 pg (27-31); Mean Corpuscular Volume 93 fL (80-94); Mean Platelet Volume 7.5 fL (7.4-10.4); Nucleated Red Blood Cells % 0.1; Platelet Count 265 10^3/ul (150-450); Red Blood Count 3.87 10^6/ul (4.00-5.40); Red Cell Distribution Width 14 % (10.5-15); White Blood Count 8.5 10^3/ul (3.5-10.8)
[2018-10-28 07:12] LABS: BUN/Creatinine Ratio 25.8 (8-20); Calcium 8.9 mg/dL (8.6-10.3); EGFR African American 155.6 (>60); EGFR Non-African American 128.6 (>60); Magnesium 1.9 mg/dL (1.9-2.7); Potassium 4.8 mmol/L (3.5-5.0)
[2018-10-28] MEDS: Insulin LISPRO* 1 UNITS UNIT SUBCUT SCH ×4 (07:28→21:03)
--- NOTE | 2018-10-28 08:39 | PN ---
Progress Note - Progress Note Date of Service: 10/28/18 SOAP: Subjective:HOSPITAL DAY #6 RIGHT PNEUMOTHORAX []denies dyspnea or cough Objective:lungs:decreased bs on R;few crackles L base;symmetrical expansion; Heimlich valve disconnected from Pleurevac per Dr Lozada;cough test positive for air leak [] Assessment:Right pneumothorax [] Plan:discussed with Dr Lozada,will get CXR off suction this morning;discussed with Janet Grady NP;if pt goes home today leave heimlich valve in place and have pt followup with Dr Lozada at [facility] on Friday11/02/18 at 1pm []
[2018-10-28] MEDS: Mometasone/Formoter 200/5 MDI INH SCH ×2 (08:40→19:18)
[2018-10-28] MEDS: metFORMIN* 1,000 MG TAB PO SCH ×2 (08:41→20:54)
[2018-10-28] MEDS: Magnesium Oxide TAB* 400 MG PO SCH ×2 (08:41→20:54)
[2018-10-28] MEDS: Albuterol HFA INHALER* 8 gm MDI INH SCH ×3 (08:41→19:21)
[2018-10-28] MEDS: Lisinopril TAB* 10 MG PO SCH (08:41)
[2018-10-28] MEDS: SITAGLIPTIN 25 MG PO SCH ×2 (08:41→20:55)
[2018-10-28] MEDS: Atorvastatin* 40 MG TAB PO SCH (08:41)
[2018-10-28] MEDS: Aspirin 81 mg CHEW TAB* 81 MG TAB.CHEW PO SCH (08:42)
[2018-10-28] MEDS: Carvedilol TAB* 25 MG PO SCH (08:42)
[2018-10-28] MEDS: Polymyx/Trimethoprim OPTH* 10 ML BTL LEFT EYE SCH ×4 (08:44→21:04)
--- NOTE | 2018-10-28 10:57 | PN ---
Progress Note - Progress Note Date of Service: 10/28/18 Note: Right ptx Lung has dropped off suction. Pleurevac suction resumed. Will leave on suction, and try again 24-48 hrs. Postpone disch.
[2018-10-28] MEDS: Insulin GLARGINE(*) 1 UNITS UNIT SUBCUT SCH (12:26)
[2018-10-28] MEDS: Morphine INJ* 2 MG/ML 1 ML SYRINGE (TWO MG - NEW SYRINGE VERSION) IV PRN (12:29)
--- NOTE | 2018-10-28 12:48 | PN ---
Subjective Date of Service: 10/28/18 Interval History: Mr. Khalil is feeling discouraged today. He was hopeful that the new chest tube that was placed yesterday evening was going to be effective and he was hopeful that he would be able to go home. He otherwise offers no complaints. Reports he had some pain at the site and a headache this morning, and those were relieved with morphine. Also has an area on his right upper back that is painful to the touch. He denies SOB, cough, N/V. Family History: Unchanged from Admission Social History: Unchanged from Admission Past Medical History: Unchanged from Admission Objective Active Medications: Acetaminophen (Tylenol Tab*) 650 mg PO Q4H PRN PAIN Albuterol (Ventolin Hfa Inhaler*) 2 puff INH QID [facility] Aspirin (Aspirin 81 Mg Chew Tab*) 81 mg PO DAILY [facility] Atorvastatin Calcium (Lipitor*) 40 mg PO DAILY [facility] Benzonatate (Tessalon Cap*) 200 mg PO TID PRN cough Carvedilol (Coreg Tab*) 25 mg PO DAILY [facility] Dextrose (D50w Syringe 50 Ml*) 12.5 gm IV PUSH .FOR FS < 60 - SS PRN FS < 60 Insulin Glargine (Lantus(*)) 40 units SUBCUT 1200 [facility] Insulin Human Lispro (Humalog*) 0 units SUBCUT ACHS [facility]; Protocol Lisinopril (Prinivil Tab*) 10 mg PO DAILY [facility] Magnesium Oxide (Magox 400 Tab*) 400 mg PO BID [facility] Melatonin (Melatonin) 3 mg PO BEDTIME [facility]; Protocol Metformin HCl (Glucophage*) 1,000 mg PO BID [facility] Mometasone Furoate/Formoterol Fumar (Dulera 200/5 Mdi*) 2 puff INH BID [facility] Morphine Sulfate (Morphine Inj ((Syringe))*) 2 mg IV Q4H PRN PAIN - MILD Oxycodone HCl (Roxycodone Tab*) 5 mg PO Q4H PRN PAIN Polymyxin/Trimethoprim Sulfate (Polytrim Ophth*) 1 drop LEFT EYE QID [facility] Sitagliptin Phosphate (Januvia (Nf)) 50 mg PO BID [facility] Vital Signs - 8 hr 10/28/18 10/28/18 10/28/18 07:14 07:29 08:42 Temperature 98.1 F Pulse Rate 67 70 Respiratory 18 18 14 Rate Blood Pressure 127/39 (mmHg) O2 Sat by Pulse 97 95 Oximetry 10/28/18 10/28/18 12:01 12:29 Temperature 98.1 F Pulse Rate 69 Respiratory 20 16 Rate Blood Pressure 114/55 (mmHg) O2 Sat by Pulse 97 Oximetry Oxygen Devices in Use Now: Nasal Cannula - 2L Appearance: Middle-aged male laying in bed in NAD Eyes: No Scleral Icterus Ears/Nose/Mouth/Throat: Mucous Membranes Moist Neck: NL Appearance and Movements; NL JVP, Trachea Midline Respiratory: Symmetrical Chest Expansion and Respiratory Effort, - - Diminished throughout on the right, otherwise clear Cardiovascular: NL Sounds; No Murmurs; No JVD, RRR Abdominal: NL Sounds; No Tenderness; No Distention Extremities: No Edema Skin: No Rash or Ulcers Neurological: Alert and Oriented x 3 Lines/Tubes/Other Access: Clean, Dry and Intact Peripheral IV Nutrition: Taking PO's Result Diagrams: 10/28/18 06:10 10/28/18 06:10 Assess/Plan/Problems-Billing Assessment: Mr. Khalil is a 68 yo M with PMH of DM, HTN, HLD, and COPD who was transferred from [facility] for recurrent right spontaneous pneumothorax requiring a chest tube. - Patient Problems (1) Spontaneous pneumothorax Code(s): J93.83 - OTHER PNEUMOTHORAX Comment: - Surgery following; Heimlich valve inserted initially on admission, removed on 10/26 and ultimately replaced the same day d/t worsening CXR - Was taken off suction today and was noted to have worsening pneumothorax, so now back on suction - Remains hypoxic, required 2L NC - Continue morphine (2) Hypomagnesemia Code(s): E83.42 - HYPOMAGNESEMIA Comment: - Resolved - Continue magnesium oxide (3) COPD (chronic obstructive pulmonary disease) Code(s): J44.9 - CHRONIC OBSTRUCTIVE PULMONARY DISEASE, UNSPECIFIED Comment: - Continue Tessalon, Dulera, albuterol (4) DMII (diabetes mellitus, type 2) Comment: - BG under good control, mostly <150 - Recent A1c from August was 7% - Continue Lispro, Lantus, metformin, Januvia (5) HTN (hypertension) Code(s): I10 - ESSENTIAL (PRIMARY) HYPERTENSION Comment: - Normotensive, SBP 110s - Continue carvedilol, lisinopril (6) Dyslipidemia Code(s): E78.5 - HYPERLIPIDEMIA, UNSPECIFIED Comment: - Continue atorvastatin (7) DVT prophylaxis Comment: - SCDs (8) Full code status Code(s): Z78.9 - OTHER SPECIFIED HEALTH STATUS Comment: Status and Disposition: Inpatient. Anticipate d/c home when cleared by Surgery and hypoxia resolves. Attending: Demetrio Aguilar
[2018-10-28] MEDS: Melatonin 3 MG TAB PO SCH (20:54)
[2018-10-29] MEDS: Morphine INJ* 2 MG/ML 1 ML SYRINGE (TWO MG - NEW SYRINGE VERSION) IV PRN (04:54)
[2018-10-29] MEDS: Albuterol HFA INHALER* 8 gm MDI INH SCH ×5 (07:08→19:30)
[2018-10-29] MEDS: Insulin LISPRO* 1 UNITS UNIT SUBCUT SCH ×4 (07:35→21:45)
[2018-10-29] MEDS: Mometasone/Formoter 200/5 MDI INH SCH ×2 (08:50→19:30)
[2018-10-29] MEDS: Magnesium Oxide TAB* 400 MG PO SCH ×2 (09:40→20:56)
[2018-10-29] MEDS: Atorvastatin* 40 MG TAB PO SCH (09:40)
[2018-10-29] MEDS: metFORMIN* 1,000 MG TAB PO SCH ×2 (09:40→20:56)
[2018-10-29] MEDS: SITAGLIPTIN 25 MG PO SCH ×2 (09:40→20:56)
[2018-10-29] MEDS: Lisinopril TAB* 10 MG PO SCH (09:40)
[2018-10-29] MEDS: Polymyx/Trimethoprim OPTH* 10 ML BTL LEFT EYE SCH ×2 (09:41→09:55)
[2018-10-29] MEDS: Carvedilol TAB* 25 MG PO SCH (09:41)
[2018-10-29] MEDS: Aspirin 81 mg CHEW TAB* 81 MG TAB.CHEW PO SCH (09:41)
[2018-10-29] MEDS: Insulin GLARGINE(*) 1 UNITS UNIT SUBCUT SCH (12:35)
--- NOTE | 2018-10-29 12:38 | PN ---
Progress Note - Progress Note Date of Service: 10/29/18 Note: S: Chest tube was placed on suction yesterday due to recurrence of pneumothorax with only Heimlich valve. He is comfortable at rest but has some chest discomfort with movement or deep breathing and mild pain at chest tube site, all of which is completely alleviated with morphine. He denies shortness of breath with 2L O2 via NC. O: Vital Signs - 12 hr Temp Pulse Resp BP Pulse Ox 10/29/18 08:51 74 16 95 10/29/18 08:00 20 10/29/18 07:18 97.1 F 70 149/65 98 10/29/18 04:54 15 10/29/18 02:46 98.4 F 72 19 141/53 97 Intake & Output 10/28/18 10/29/18 10/29/18 22:59 06:59 14:59 Intake Total 240 0 200 Balance 240 0 200 General: Laying in bed comfortably. Heart: Regular rate and rhythm, S1 S2, no murmur. Lungs: Clear breath sounds on left, sightly diminished on right without crackles or wheezing. Air leak noted. Small amount of serosanguinous fluid in chamber. Skin: No swelling or erythema to chest tube insertion site on right anterior chest. Mildly tender to palpation. No induration. A/P: This is a 68 year old male with a history of COPD, who has had recurrent pneumothoraces while admitted, being managed with chest tube to suction. Pneumothorax -Continue chest tube to suction today, consider discontinuing suction in the next day or two if doing clinically well. -Follow progress afterwards with chest xray. Brigette STERLING
--- NOTE | 2018-10-29 14:04 | PN ---
Subjective Date of Service: 10/29/18 Interval History: Patient is feeling well today. Patient is still intermittiently SOB and is needing supplemental O2. Patient has intermittent pain with breathing around chest tube site. Patient denies N/V, dizziness on standing, CP, F/C, cough, or other alarming symptoms. Family History: Unchanged from Admission Social History: Unchanged from Admission Past Medical History: Unchanged from Admission Objective Active Medications: Acetaminophen (Tylenol Tab*) 650 mg PO Q4H PRN PRN Reason: PAIN Albuterol (Ventolin Hfa Inhaler*) 2 puff INH QID [facility] Last Admin: 10/29/18 08:51 Dose: 2 puff Aspirin (Aspirin 81 Mg Chew Tab*) 81 mg PO DAILY [facility] Last Admin: 10/29/18 09:41 Dose: 81 mg Atorvastatin Calcium (Lipitor*) 40 mg PO DAILY [facility] Last Admin: 10/29/18 09:40 Dose: 40 mg Benzonatate (Tessalon Cap*) 200 mg PO TID PRN PRN Reason: cough Last Admin: 10/24/18 09:12 Dose: 200 mg Carvedilol (Coreg Tab*) 25 mg PO DAILY [facility] Last Admin: 10/29/18 09:41 Dose: 25 mg Dextrose (D50w Syringe 50 Ml*) 12.5 gm IV PUSH .FOR FS < 60 - SS PRN PRN Reason: FS < 60 Insulin Glargine (Lantus(*)) 35 units SUBCUT 1200 [facility] Last Admin: 10/29/18 12:35 Dose: 35 units Insulin Human Lispro (Humalog*) 0 units SUBCUT ACHS [facility]; Protocol Last Admin: 10/29/18 12:36 Dose: 4 unit Lisinopril (Prinivil Tab*) 10 mg PO DAILY [facility] Last Admin: 10/29/18 09:40 Dose: 10 mg Magnesium Oxide (Magox 400 Tab*) 400 mg PO BID [facility] Last Admin: 10/29/18 09:40 Dose: 400 mg Melatonin (Melatonin) 3 mg PO BEDTIME [facility]; Protocol Last Admin: 10/28/18 20:54 Dose: 3 mg Metformin HCl (Glucophage*) 1,000 mg PO BID [facility] Last Admin: 10/29/18 09:40 Dose: 1,000 mg Mometasone Furoate/Formoterol Fumar (Dulera 200/5 Mdi*) 2 puff INH BID [facility] Last Admin: 10/29/18 08:50 Dose: 2 puff Morphine Sulfate (Morphine Inj ((Syringe))*) 2 mg IV Q4H PRN PRN Reason: PAIN - MILD Last Admin: 10/29/18 04:54 Dose: 2 mg Oxycodone HCl (Roxycodone Tab*) 5 mg PO Q4H PRN PRN Reason: PAIN Last Admin: 10/25/18 21:36 Dose: 5 mg Sitagliptin Phosphate (Januvia (Nf)) 50 mg PO BID [facility] Last Admin: 10/29/18 09:40 Dose: 50 mg Vital Signs - 8 hr 10/29/18 10/29/18 10/29/18 07:18 08:00 08:51 Temperature 97.1 F Pulse Rate 70 74 Respiratory 20 16 Rate Blood Pressure 149/65 (mmHg) O2 Sat by Pulse 98 95 Oximetry Oxygen Devices in Use Now: Nasal Cannula Appearance: Patient is a 68yo male who appears stated age and is sitting in the bed in [facility]. Eyes: No Scleral Icterus, PERRLA Ears/Nose/Mouth/Throat: NL Teeth, Lips, Gums, Clear Oropharnyx, Mucous Membranes Moist Neck: NL Appearance and Movements; NL JVP, Trachea Midline Respiratory: Clear to Auscultation, - - Diminished breath sounds in right lobe. Cardiovascular: NL Sounds; No Murmurs; No JVD, RRR, No Edema Abdominal: NL Sounds; No Tenderness; No Distention, No Hepatosplenomegaly Lymphatic: No Cervical Adenopathy Extremities: No Edema, No Clubbing, Cyanosis Skin: No Rash or Ulcers, No Nodules or Sclerosis, - - Chest tube site covered in bulky dressing. Neurological: Alert and Oriented x 3, NL Sensation, NL Muscle Strength and Tone Result Diagrams: 10/28/18 06:10 10/28/18 06:10 Microbiology and Other Data: Microbiology 10/24/18 20:50 Gram Stain - Final Sputum Expectorated Sputum Culture - Final Normal Livia Assess/Plan/Problems-Billing Assessment: Mr. Khalil is a 68 yo M with PMH of DM, HTN, HLD, and COPD who was transferred from [facility] for recurrent right spontaneous pneumothorax requiring a chest tube with persistent hypoxia and pneumothorax requiring repeat chest tube insertion which is currently to wall suction. - Patient Problems (1) Spontaneous pneumothorax Current Visit: Yes Status: Acute Code(s): J93.83 - OTHER PNEUMOTHORAX SNOMED Code(s): 86639226 Comment: - Surgery following; Heimlich valve inserted initially on admission, removed on 10/26 and ultimately replaced the same day d/t worsening CXR - Was taken off suction today and was noted to have worsening pneumothorax, so now back on suction, plan to try to stop suction again in the next 24 hours. - Remains hypoxic, required 2L NC - Continue morphine PRN (2) COPD (chronic obstructive pulmonary disease) Current Visit: Yes Status: Acute Code(s): J44.9 - CHRONIC OBSTRUCTIVE PULMONARY DISEASE, UNSPECIFIED SNOMED Code(s): 98250224 Comment: - Continue Tessalon, Dulera, albuterol - Not in exacerbation - With persistent hypoxia may need discharge with O2. (3) DMII (diabetes mellitus, type 2) Current Visit: Yes Status: Acute Comment: - BG under good control, mostly <150 - Recent A1c from August was 7% - Continue Lispro, Lantus, metformin, Januvia - Decrease lantus for morning hypoglycemia. (4) Dyslipidemia Current Visit: Yes Status: Acute Code(s): E78.5 - HYPERLIPIDEMIA, UNSPECIFIED SNOMED Code(s): 689319880 Comment: - Continue atorvastatin (5) HTN (hypertension) Current Visit: Yes Status: Acute Code(s): I10 - ESSENTIAL (PRIMARY) HYPERTENSION SNOMED Code(s): 05261728 Comment: - Normotensive, SBP 110s-140s - Continue carvedilol, lisinopril (6) DVT prophylaxis Current Visit: Yes Status: Acute Code(s): CMU6365 - SNOMED Code(s): 622560710 Comment: - SCDs (7) Full code status Current Visit: Yes Status: Acute Code(s): Z78.9 - OTHER SPECIFIED HEALTH STATUS SNOMED Code(s): 650757103 Comment: Status and Disposition: Inpatient. Anticipate d/c home when cleared by Surgery.
--- NOTE | 2018-10-29 17:41 | PN ---
Progress Note - Progress Note Date of Service: 10/29/18 Note: Surgery Progress: Patient seen earlier today with PA student, Brigette Renee. Patient was seen and examined by myself. Please see student's note, with which I agree for findings and plan. Consider trial off suction again tomorrow. Will d/w Dr. Lozada. Patient is otherwise stable at the present time.
[2018-10-29] MEDS: oxyCODONE TAB* 5 MG TAB PO PRN (20:55)
[2018-10-29] MEDS: Melatonin 3 MG TAB PO SCH (20:56)
[2018-10-30 06:57] LABS: BUN/Creatinine Ratio 26.3 (8-20); Calcium 9.1 mg/dL (8.6-10.3); EGFR Non-African American 95.8 (>60); Magnesium 1.6 mg/dL (1.9-2.7); Potassium 4.8 mmol/L (3.5-5.0)
[2018-10-30 07:09] LABS: ABS Basophils 0.1 10^3/ul (0-0.2); ABS Eosinophils 0.6 10^3/ul (0-0.6); ABS Lymphocytes 3.2 10^3/ul (1.0-4.8); ABS Monocytes 0.6 10^3/ul (0-0.8); ABS Neutrophils 3.5 10^3/ul (1.5-7.7); ABS Nucleated RBC 0 10^3/ul; Eosinophil % 7.8 %; Hematocrit 35 % (36-46); Hemoglobin 11.6 g/dL (14.0-18.0); Lymphocyte % 39.5 %; Mean Corpuscular HGB Conc 34 g/dL (31-36); Mean Corpuscular Hemoglobin 31 pg (27-31); Mean Corpuscular Volume 93 fL (80-94); Mean Platelet Volume 7.7 fL (7.4-10.4); Nucleated Red Blood Cells % 0.1; Platelet Count 259 10^3/uL (150-450); Red Blood Count 3.71 10^6 /uL (4.18-5.48); Red Cell Distribution Width 14 % (10.5-15)
[2018-10-30] MEDS ORDERED: Magnesium Sulf 4 GM/100 ML IV* 4,000 MG/100 ML BAG IVPB ONE (07:45)
[2018-10-30] MEDS: Insulin LISPRO* 1 UNITS UNIT SUBCUT SCH ×2 (08:21→12:33)
[2018-10-30] MEDS: Carvedilol TAB* 25 MG PO SCH (08:51)
[2018-10-30] MEDS: Lisinopril TAB* 10 MG PO SCH (08:51)
[2018-10-30] MEDS: SITAGLIPTIN 25 MG PO SCH (08:51)
[2018-10-30] MEDS: Aspirin 81 mg CHEW TAB* 81 MG TAB.CHEW PO SCH (08:51)
[2018-10-30] MEDS: Atorvastatin* 40 MG TAB PO SCH (08:51)
[2018-10-30] MEDS: metFORMIN* 1,000 MG TAB PO SCH (08:51)
[2018-10-30] MEDS: Magnesium Oxide TAB* 400 MG PO SCH (08:51)
[2018-10-30] MEDS: Mometasone/Formoter 200/5 MDI INH SCH (10:11)
[2018-10-30] MEDS: Albuterol HFA INHALER* 8 gm MDI INH SCH ×2 (10:12→14:10)
--- NOTE | 2018-10-30 10:43 | PN ---
Progress Note - Progress Note Date of Service: 10/30/18 Note: Right ptx Feels well, no dyspnea Chest tube still with cough air leak Will disconnect suction and recheck CXR. If able to tolerate, consider disch with Heimlich valve.
[2018-10-30 12:16] VITALS: BP 130/49
[2018-10-30] MEDS: Insulin GLARGINE(*) 1 UNITS UNIT SUBCUT SCH (12:34)
--- NOTE | 2018-10-30 19:53 | DS ---
CC: Danitza Trujillo; Dr. Tico Lozada * DISCHARGE SUMMARY: DATE OF ADMISSION: 10/23/18 DATE OF DISCHARGE: 10/30/18 PRIMARY CARE PROVIDER: Danitza Trujillo. MY ATTENDING WHILE IN THE HOSPITAL: Dr. Demetrio Aguilar.* (DICTATED BY CALLI CORRALES) CONSULTING SURGEON: Dr. Tico Lozada. PRIMARY DISCHARGE DIAGNOSES: 1. Pneumothorax. 2. Hypoxia. 3. Acute hypoxic respiratory failure due to pneumothorax. SECONDARY DISCHARGE DIAGNOSES: 1. Chronic obstructive pulmonary disease with acute exacerbation. 2. Type 2 diabetes mellitus. 3. Hypertension. 4. Hyperlipidemia. STUDIES DONE WHILE IN THE HOSPITAL: Chest x-ray from 10/23/18 read as persistent large right pneumothorax associated with mediastinal shift. Chest x- ray from 10/23/18, repeat, read as gross complete resolution of right pneumothorax post Heimlich valve chest tube placement, stigmata of chronic obstructive pulmonary disease, emphysema, potential mild vascular congestion. Chest x-ray on 10/24/18 read as negative for persistent or recurrent right pneumothorax. Chest x-ray from 10/27/18 read as only minimal residual right pneumothorax without change, probable interval development of pulmonary vascular congestion. Chest x-ray from 10/27/18 read as moderate-sized right pneumothorax, increased in size. Chest x-ray from 10/27/18 read as status post chest tube placement with near complete resolution of previous noted right pneumothorax. Chest x-ray from 10/28/18 read as small-to- moderate right pneumothorax. Position of Heimlich valve catheter in the right apex has changed since 10/27/18. Chest x-ray from 10/30/18 read as right hydropneumothorax slightly progressed compared to . MEDICATIONS AT DISCHARGE: 1. Aspirin 81 mg p.o. daily. 2. Rosuvastatin 20 mg p.o. daily. 3. Carvedilol 25 mg p.o. daily. 4. Ramipril 10 mg p.o. daily. 5. Janumet one tab p.o. b.i.d. 6. Oxycodone 5/325 one tab q.4 hours as needed. 7. Tessalon 200 mg p.o. t.i.d. 8. Ventolin inhaler 1 puff inhalation 4 times a day. 9. Advair Diskus 250/50 one puff inhalation b.i.d. 10. Tylenol 650 mg p.o. q.4 hours as needed. 11. Magnesium oxide 400 mg p.o. b.i.d. 12. Levemir FlexTouch 45 units subcutaneous daily. New Medications At Discharge: 1. Tylenol. 2. Magnesium oxide. Medications Discontinued at Discharge: 1. Insulin detemir 40 units subcutaneous daily. HOSPITAL COURSE: This is a brief summary of the patient's presentation. For more details, please see the history and physical from Dr. Eugenia Kwok on 04/05. In brief, patient is a 68-year-old male with a past medical history significant for the above who 2 weeks before his admission was started on antibiotics for presumed bronchitis due to shortness of breath. Patient 1 week later saw his primary and showed the pneumothorax as above. He was admitted to [facility], observed overnight, and discharged. Patient continued to feel worse and patient's pneumothorax was found to be worse. Patient was transferred from [facility] to the [facility] and a chest tube was placed by Dr. Linus Crenshaw of surgery and his shortness of breath improved. Patient, however, at this time was found to be hypoxic and started on oxygen, particularly with exertion. Patient while in the hospital continued to have shortness of breath. Patient's blood sugars were under rather good control. Patient's repeat chest x-ray from 10/24/18 read as above. Patient had pain associated with his chest tube, but no other significant pain. Patient continued to desaturate, particularly with ambulation. Patient had previously followed with a church warden, but had never reestablished with one after his church warden . Patient on 10/27/18 was noted to have worsening of his pneumothorax and a repeat chest tube was placed and this was hooked up to wall suction. Patient noticed very little difference in his respiratory status and continued to desaturate with ambulation. Patient was trialed again on Heimlich valve on 10/30/18 and it was noted that his pneumothorax was not improved and actually worsened off wall suctioning. However, his respiratory status did not worsen with this and his desaturation remained the same. Patient due to persistent pneumothorax was deemed to be stable and amenable for discharge on 10/30/18 with home oxygen and close surgical followup. PHYSICAL EXAMINATION ON THE DAY OF DISCHARGE: General: Patient is a 68-year- old who appears stated age and sitting comfortably in the bed, in no acute distress. Vital Signs: At the time of evaluation, temperature 97.5, pulse rate 76, respiratory rate 18, oxygen saturation 94% on 2 L, blood pressure 130/49. HEENT: Head: Normocephalic, atraumatic. Sclerae anicteric. No conjunctival injection. Nasal mucosa is moist. Oral mucosa moist. No pharyngeal erythema, discharge, or exudate. Neck: Supple, nontender. No lymphadenopathy. No carotid bruits auscultated. No JVD. Cardiac: Regular rate and rhythm. No clicks, murmurs, gallops, or rubs. Pulses 2+ in the bilateral dorsalis pedis, posterior tibialis and radial areas. Respiratory: Clear to auscultation bilaterally. Diminished breath sounds in the right lung. No adventitious lung sounds. Abdomen: Soft, nontender, nondistended. Bowel sounds present. Normoactive in all 4 quadrants. No hepatosplenomegaly. No abdominal bruits auscultated. No hepatojugular reflux. Genitourinary: No suprapubic or CVA tenderness. Skin: Clean, dry, intact. No rash. Chest tube site covered with bulky dressing and Tegaderm. No sign of air leak. Neuro: Cranial nerves II through XII intact. No focal deficits. Alert and oriented x3. Psychiatric: Pleasant and cooperative. DISCHARGE PLAN: Patient will be discharged to home. Patient will have a followup in [address] Tico Lozada for repeat chest x-ray and evaluation of the efficacy of his chest tube. Patient's hypoxia does not appear to be proportional to the degree of his pneumothorax. As patient has known advanced COPD and has not followed with pulmonology for a long time, patient has been referred to Dr. Thania De Santiago of pulmonology for pulmonary function testing and evaluation for possible long-term oxygen therapy. Patient will be discharged on oxygen, which he should wear at all times and possibly increase to 3 L with ambulation. Patient's oxygen requirement should hopefully decrease as his pneumothorax resolves. Patient should have a consistent carbohydrate diet. Patient should abstain from strenuous activity and avoid situations which may predispose to trauma. Patient should follow up with his primary care provider in 1 week for general medical management. Patient should return to the hospital for chest pain, shortness of breath, passing out, or other alarming symptoms. TIME SPENT: Approximately 60 minutes were spent on the discharge of this patient, 30 of which were spent [id number] with the patient obtaining history and physical and discussing treatment plan. CALLI CORRALES [id number]/[facility] #: [id number] [place]
== END 2018-10-30 15:30 | disposition home or self-care (01) | DRG 199 ==
LOC: ED 13:14 → MED 20:57 → OBSVTOIN 10-24 15:13
PROVIDERS: ADMIT Hospitalist; ATTEND Internal Medicine
PROC: 0W9930Z Drainage of Right Pleural Cavity with Drainage Device, Percutaneous Approach (ICD-10-PCS; principal; 2018-10-27)
DX: J93.83 Other pneumothorax (principal); J96.01 Acute respiratory failure with hypoxia; J44.1 Chronic obstructive pulmonary disease with (acute) exacerbation; E83.42 Hypomagnesemia; E11.9 Type 2 diabetes mellitus without complications; I10 Essential (primary) hypertension; E78.5 Hyperlipidemia, unspecified; H10.9 Unspecified conjunctivitis; Z79.82 Long term (current) use of aspirin; Z79.899 Other long term (current) drug therapy; Z88.8 Allergy status to other drugs, medicaments and biological substances; Z91.041 Radiographic dye allergy status; Z82.49 Family history of ischemic heart disease and other diseases of the circulatory system; Z83.3 Family history of diabetes mellitus; Z87.891 Personal history of nicotine dependence
CPT/HCPCS: 36415; 71045; 71046; 80048; 83735; 85025; 87070; 87205; 94640; 99284; A9270-GY; J2270; J3475

== ENCOUNTER 2018-11-12 11:05 | Inpatient (IN) | payer MEDICARE ==
[~2018-11-12 11:05] MED LIST: Buffered Lidocaine 1% SYRIN* 1 ML/SYRINGE INTRADERM ONE; Dexamethasone TAB* 4 MG ONE; Dexamethasone TAB* 4 MG PO ONE; DiMENhydriNATE IV* 50 MG/ML VIAL IV PUSH PRN; Famotidine IV* 10 MG/ML 2 ML (20 mg) IV ONE; Famotidine IV* 10 MG/ML 2 ML (20 mg) ONE; Lactated Ringers 1000 ML Bag* 1,000 ML IV SCH; Levalbuterol 0.63MG/3ML NEB* UNIT OF USE INH ONE; Morphine 4 MG/ML VIAL (1 ml) 4 MG/ML VIAL IV PRN; NS 0.9% ONE; Naloxone* 0.4 MG/ML 1 ML VIAL IV PRN; Ondansetron ODT TAB* 4 MG ONE; Ondansetron TAB* 4 MG PO ONE; PROCHLORPERAZINE INJ 5 MG/ML 2 ML VIAL IV PRN; STERILE ONE; TALC ONE; ceFAZolin 2 GM in NS PREMIX(*) 2 GM/100 ML BAG IVPB ONE
[2018-11-12] MEDS ORDERED: Levalbuterol 0.63MG/3ML NEB* UNIT OF USE INH ONE (11:24)
[2018-11-12] MEDS ORDERED: Midazolam* 1 MG/ML 5 ML VIAL (5 MG) ONE (11:30)
[2018-11-12] MEDS ORDERED: KETAMINE HCL* 50 MG/ML 10 ML VIAL ONE (11:30)
[2018-11-12] MEDS ORDERED: fentaNYL* 50 MCG/ML 5 ML VIAL (250 MCG VIAL) ONE (11:30)
[2018-11-12] MEDS ORDERED: Propofol* 10 MG/ML 20 ML BTL ONE (11:31)
[2018-11-12] MEDS ORDERED: Atracurium* 10 MG/ML 10 ML VIAL ONE (11:31)
[2018-11-12] MEDS ORDERED: Lidocaine 2% PF * 5 ML VIAL ONE ×2 (11:31→15:45)
[2018-11-12] MEDS ORDERED: TALC ONE ×2 (12:00)
[2018-11-12] MEDS ORDERED: STERILE ONE ×2 (12:00)
[2018-11-12] MEDS ORDERED: NS 0.9% ONE ×2 (12:00)
[2018-11-12] MEDS ORDERED: Bupivacaine 0.25% EPI 200,000* 30 ML SDV ONE (14:33)
[2018-11-12] MEDS ORDERED: Neostigmine Methylsulfate* 1 MG/ML 10 ML VIAL (1 mg/ml) ONE (15:45)
[2018-11-12] MEDS ORDERED: EPHEDrine (Pressors)* 50 MG/ML VIAL ONE (15:45)
[2018-11-12] MEDS ORDERED: Glycopyrrolate IV* 0.2 MG/ML 1 ML VIAL ONE (15:45)
[2018-11-12] MEDS ORDERED: Flumazenil* 0.1 MG/ML 5 ML MDV ONE (16:01)
[2018-11-12] MEDS ORDERED: Ondansetron INJ* 2 MG/ML VIAL IV PRN (16:10)
[2018-11-12] MEDS ORDERED: HYDROmorphone INJ1* 1 MG/ML SYRINGE IV SLOW PU PRN (16:10)
[2018-11-12] MEDS ORDERED: fentaNYL* 50 MCG/ML 2 ML VIAL (100 MCG VIAL) ONE (16:56)
[2018-11-12] MEDS: fentaNYL* 50 MCG/ML 2 ML VIAL (100 MCG VIAL) IV PRN ×3 (17:00→18:07)
[2018-11-12] MEDS ORDERED: Dextrose 50% Syringe 50 ML* 25 GM/50 ML SYRINGE IV PUSH PRN (17:10)
[2018-11-12] MEDS ORDERED: Albuterol 2.5 MG/3 ML NEB.SOL* (0.083%) INH PRN (17:19)
[2018-11-12] MEDS: NS 0.9% 1000 ML** 1,000 ML IV SCH (18:40)
--- NOTE | 2018-11-12 19:47 | CONS ---
CC: Dr. Robert; Dr. Lozada * CONSULTATION REPORT: DATE OF CONSULT: 11/12/18 PRIMARY CARE PROVIDER: Dr. Robert. ATTENDING PHYSICIAN WHILE IN THE HOSPITAL: Dr. Arroyo (report dictated by Laith Coon NP). REQUESTING PHYSICIAN IN CONSULT: Dr. Lozada. REASON FOR MEDICAL CONSULTATION: Evaluation and medical management of comorbid medical conditions. HISTORY OF PRESENT ILLNESS: I refer you to Dr. Lozada's H and P dictated for further details. In short, Mr. Khalil is a 68-year-old male patient who actually was recently admitted to our service for a spontaneous pneumothorax. He had a Heimlich valve placed in and also had chest tube as well. The pneumothorax did not completely resolve and he did have a persistent air leak. He was discharged. He followed up with x-rays with Dr. Lozada a week after discharge and it was felt that he would benefit from the VATS to help finding the source of air leak. He ultimately underwent the procedure today. He carries a history of PVD, again spontaneous pneumothorax, diabetes, COPD, hypertension, hyperlipidemia, and valvular heart disease. Because of his medical complexity, we were asked to evaluate in consult. He was evaluated in the PACU postoperatively. He is denying any shortness of breath or chest pain. He says that he is feeling well. He denies having any abdominal pain or any nausea. He denies having any again chest pain. He does admit to pain near the chest tube insertion site at this point, but denies again feeling shortness of breath at this point. Denies any nausea or any abdominal pain. PAST MEDICAL HISTORY: Significant for: 1. Peripheral vascular disease. 2. Spontaneous pneumothorax. 3. Diabetes. 4. COPD. 5. Hypertension. 6. Hyperlipidemia. 7. Valvular heart disease. PAST SURGICAL HISTORY: He has had: 1. Lymph node biopsy. 2. Cholecystectomy. 3. Appendectomy. 4. Left rotator cuff repair. 5. VATS done today. 6. Chest tube insertion. HOME MEDICATIONS: Include: 1. Glipizide 5 mg daily. 2. Janumet 1 tablet p.o. b.i.d. 3. Crestor 20 mg daily. 4. Magnesium oxide 400 mg p.o. b.i.d. 5. Lisinopril 10 mg daily. 6. Insulin detemir 35 units subcu at bedtime. 7. Advair 1 puff inhaled b.i.d. 8. Plavix 75 mg daily. 9. Carvedilol 25 mg daily. 10. Aspirin 81 mg daily. 11. Ventolin 1 puff inhaled 4 times daily. 12. Tylenol 650 mg every 4 hours. ALLERGIES TO MEDICATIONS: Include GUAIFENESIN, IV DYE. FAMILY HISTORY: His mother had a history of diabetes and heart disease. She is . Father is still alive at age 96. SOCIAL HISTORY: He is a former smoker. He does not drink alcohol. Surrogate decision maker is his . REVIEW OF SYSTEMS: There is no documented fever. Denies having any significant weight change. There is no double vision, no ear discharge. He denies having any rhinorrhea. There is no sore throat. No thyroid enlargement. He does admit to pain near his chest tube insertion site. Denies shortness of breath. Denies any abdominal pain. Denies having any nausea or vomiting. No dysuria, no frequency. No seizure, no loss of consciousness. No pruritus and no skin ulcerations. Review of 14 systems was completed, all others negative. PHYSICAL EXAM: Vital Signs: Blood pressure 125/65, pulse 87, respirations are 20, O2 sat 92% on 6 L, temperature 96.3. General: At this time, Mr. Khalil is a 68-year- old male patient. He is sitting in the PACU bed. He does not appear to be in any acute distress. He appears to be well nourished and well developed. HEENT: Head is atraumatic and normocephalic. Eyes: EOMs are intact. Sclerae anicteric and not pale. Throat: Oral mucosa appears to be moist. No oropharyngeal erythema. Neck was supple. Heart: Sounds S1, S2. He had a regular rate and rhythm. No murmurs, rubs, or gallops. Lungs were again diminished on the right. He had some crackles in the right base. He had equal diaphragmatic expansion. Abdomen was soft, flat, nontender. Bowel sounds were present. Extremities: Pulses were 2+ throughout. Neurologically, he is drowsy , but he awakens to his name. He is alert. He is oriented x3. His speech was clear. His tongue was midline. He had no facial drooping. No gross focal deficits. His skin was intact with exception he has a chest tube insertion site to the right chest wall, which is clean, dry, and intact. DIAGNOSTIC STUDIES/LAB DATA: Labs from 10/30/18: WBC of 8.0, RBC of 3.71, hemoglobin 11.6, hematocrit 35, platelet count 259. His sodium was 134, potassium of 4.8, chloride of 103, bicarb 27, BUN 21, creatinine of 0.80, glucose 80. Urinalysis showed 2+ glucose, but that was from 2018. He had a chest x-ray obtained today, which showed lines and tubes as above. No residual pneumothorax. Pulmonary interstitial edema, basilar atelectasis versus consolidation. Old medical records were reviewed. ASSESSMENT AND PLAN: Mr. Khalil is a 68-year-old male patient coming into the surgical service today for VATS procedure due to persistent air leak with a recently placed chest tube. We were asked to evaluate in consult. My recommendations at this point are: 1. Pneumothorax, status post VATS. I will defer the management to Dr. Lozada and his team. 2. Peripheral vascular disease. He is on aspirin currently. He was taking Plavix. He does have a history of stents in his lower extremity to the left leg according to the patient. At this point, I would get him back on the Plavix as soon as it is possible per the recommendations of Dr. Lozada. 3. Diabetes. We will place him on a lispro sliding scale. 4. Chronic obstructive pulmonary disease. Continue his current medical regimen. I have ordered p.r.n. albuterol. In addition to this, I will order his Advair. 5. Hypertension. Continue his meds with the exception of his EDITH inhibitor. We will continue his beta-vicki. 6. Hyperlipidemia. Continue his Crestor. 7. History of valvular heart disease. He can follow up with his PCP. 8. DVT prophylaxis: Defer to the primary team. 9. Code status: He is full code. 10. Fluids, electrolytes, and nutrition: I would recommend a consistent carb diet. TIME SPENT: Time spent on the consult was 60 minutes, greater than half the time was spent [id number] with the patient obtaining my history and physical, other half time was spent going over the plan of care with the patient and implementing plan of care. I did discuss the plan of care with my attending, Dr. Arroyo; he is in agreement. LAITH COON NP [id number]/[facility] #: [id number] [place]
[2018-11-12] MEDS: Ketorolac INJ* 30 MG/ML 1 ML VIAL IV SCH (20:06)
[2018-11-12] MEDS: Mometasone/Formoter 200/5 MDI INH SCH (20:55)
[2018-11-12] MEDS ORDERED: Insulin GLARGINE(*) 1 UNITS UNIT SUBCUT SCH (21:00)
[2018-11-12] MEDS: Heparin VIAL(*) 5000 UNITS/ML VIAL (FIVE THOUSAND) SUBCUT SCH (22:17)
[2018-11-12] MEDS: Docusate CAP* 100 MG PO SCH (22:18)
--- NOTE | 2018-11-13 00:24 | OP ---
CC: Dr. Mildred Robert; Dr. Thania De Santiago * DATE OF OPERATION: 11/12/18 - ROOM #353 DATE OF : 48 SURGEON: Tico Lozada MD. LEGAL WRITING PROFESSOR: Darling Morris NP. ANESTHESIOLOGIST: Tico Araya MD. ANESTHESIA: General anesthetic, local infiltration. PRE-OP DIAGNOSIS: Persistent right pneumothorax with air leak. POST-OP DIAGNOSIS: Persistent right pneumothorax with air leak. OPERATIVE PROCEDURE: Right video thoracoscopy with bleb resection and pleurodesis. DESCRIPTION OF PROCEDURE: The patient was laid supine on the operative table. After adequate general anesthetic, compression stockings, Nba Hugger warmer, and intravenous antibiotics, he was put in the lateral decubitus position with the right chest upward. He was appropriately padded and positioned and secured to the table, and the fiberoptic bronchoscopy was carried out to confirm positioning of the double lumen endotracheal tube. The right chest was then prepped with antiseptic and draped in a sterile fashion. The right chest was entered laterally approximately in the region of the eighth interspace and the Thoracoport was placed. Additional 5 mm sites were entered posterior and anterior to this site. These were 5 mm sites. Inspection of the pleural cavity revealed adhesions in the region of his previous surgery anteriorly. There were no blebs noted throughout the upper lobe; however, the anterior aspect of the lower lobe did have a golf ball sized bleb. This was resected using an EndoGIA stapler with a 60 mm purple load with the SEAM-GUARDS in place. This created excellent closure and this was sent for pathologic evaluation. Additional inspection revealed no other blebs identified. Therefore , mechanical pleurodesis was carried out using a Bovie scratch pad. This was followed by talc pleurodesis throughout the pleural space. A 32-Maori chest tube was placed towards the apex and sutured at the skin using 2-0 Prolene and the 2 smaller incisions were closed using 4-0 Vicryl and Steri-Strips. He tolerated the procedure well, was awakened and brought to recovery in good condition. COMPLICATIONS: No complications. DRAINS: Chest tube. COUNTS: Sponge and instrument counts were correct. ESTIMATED BLOOD LOSS: 50 mL. SPECIMEN: Right lower lobe bleb. [id number]/[facility] #: [id number] [facility]
[2018-11-13] MEDS: Ketorolac INJ* 30 MG/ML 1 ML VIAL IV SCH ×2 (01:53→11:05)
[2018-11-13] MEDS: oxyCODONE/Acetamin 5/325 MG* TAB PO PRN ×3 (01:58→12:26)
[2018-11-13] MEDS: Heparin VIAL(*) 5000 UNITS/ML VIAL (FIVE THOUSAND) SUBCUT SCH ×3 (06:08→21:21)
[2018-11-13] MEDS: NS 0.9% 1000 ML** 1,000 ML IV SCH ×2 (07:57→23:00)
--- NOTE | 2018-11-13 07:57 | PN ---
Progress Note - Progress Note Date of Service: 11/13/18 Note: POD#1 s/p right VATS Afeb, VS noted Voiding well Teo po's CT level 280 ml, serosang, no air leak Denies pain Dressings small drainage Breathing easy, good aeration Cont chest tube, stop suction Await decreased drainage Change Toradol to prn OK to re-start Plavix 11/14 Hospitalist assistance appreciated.
[2018-11-13] MEDS: Mometasone/Formoter 200/5 MDI INH SCH ×2 (08:03→21:25)
[2018-11-13] MEDS: Atorvastatin* 40 MG TAB PO SCH (08:04)
[2018-11-13] MEDS: Carvedilol TAB* 25 MG PO SCH (08:05)
[2018-11-13] MEDS: Aspirin 81 mg CHEW TAB* 81 MG TAB.CHEW PO SCH (08:05)
[2018-11-13 08:32] LABS: ABS Basophils 0.1 10^3/ul (0-0.2); ABS Eosinophils 0 10^3/ul (0-0.6); ABS Lymphocytes 1.2 10^3/ul (1.0-4.8); ABS Monocytes 0.9 10^3/ul (0-0.8); ABS Neutrophils 11.8 10^3/ul (1.5-7.7); ABS Nucleated RBC 0 10^3/ul; Eosinophil % 0 %; Hematocrit 33 % (36-46); Lymphocyte % 8.2 %; Mean Corpuscular HGB Conc 34 g/dL (31-36); Mean Corpuscular Hemoglobin 31 pg (27-31); Mean Corpuscular Volume 92 fL (80-94); Mean Platelet Volume 6.9 fL (7.4-10.4); Nucleated Red Blood Cells % 0; Platelet Count 345 10^3/uL (150-450); Red Blood Count 3.56 10^6 /uL (4.18-5.48); Red Cell Distribution Width 14 % (10.5-15)
[2018-11-13 08:52] LABS: BUN/Creatinine Ratio 22.5 (8-20); Calcium 8.3 mg/dL (8.6-10.3); EGFR Non-African American 95.8 (>60); Potassium 4.4 mmol/L (3.5-5.0)
[2018-11-13] MEDS: Docusate CAP* 100 MG PO SCH ×2 (09:38→21:20)
[2018-11-13] MEDS: Insulin LISPRO* 1 UNITS UNIT SUBCUT SCH ×3 (09:38→17:46)
[2018-11-13] MEDS: Ketorolac INJ* 30 MG/ML 1 ML VIAL IV PRN ×2 (12:26→21:23)
--- NOTE | 2018-11-13 14:06 | PN ---
Subjective Date of Service: 11/13/18 Interval History: Pain control OK. No cough, SOB. Walked to [place]. No new c/o. Objective Active Medications: Acetaminophen (Tylenol Tab*) 650 mg PO Q4H PRN PRN Reason: Pain Or Temperature >101 F Albuterol (Ventolin 2.5 Mg/3 Ml Neb.Laura*) 2.5 mg INH Q2H PRN PRN Reason: SOB/WHEEZING Aspirin (Aspirin 81 Mg Chew Tab*) [facility] [place] Last Admin: 11/13/18 08:05 Dose: 81 mg Atorvastatin Calcium (Lipitor*) 40 [facility] [place] Last Admin: 11/13/18 08:04 Dose: 40 mg Carvedilol (Coreg Tab*) [facility] [place] Last Admin: 11/13/18 08:05 Dose: 25 mg Dextrose (D50w Syringe 50 Ml*) 12.5 gm IV PUSH .FOR FS < 60 - SS PRN PRN Reason: FS < 60 Docusate Sodium (Colace Cap*) 100 mg PO BID [facility] Last Admin: 11/13/18 09:38 Dose: 100 mg Heparin Sodium (Porcine) (Heparin Vial(*)) 5,000 units SUBCUT Q8HR [facility] Last Admin: 11/13/18 06:08 Dose: 5,000 units Hydromorphone HCl (Dilaudid Inj1s*) 0.5 mg IV SLOW PU Q1H PRN PRN Reason: PAIN - SEVERE Sodium Chloride (Ns 0.9% 1000 Ml) 1,000 mls @ 75 mls/hr IV PER RATE [facility] Last Admin: 11/13/18 07:57 Dose: 75 mls/hr Insulin Glargine (Lantus(*)) 35 units SUBCUT BEDTIME [facility] Insulin Human Lispro (Humalog*) 0 units SUBCUT AC [facility]; Protocol Last Admin: 11/13/18 12:33 Dose: 12 units Ketorolac Tromethamine (Toradol Inj*) 15 mg IV Q6H PRN PRN Reason: PAIN Stop: 11/14/18 19:29 Last Admin: 11/13/18 12:26 Dose: 15 mg Mometasone Furoate/Formoterol Fumar (Dulera 200/5 Mdi*) 2 puff INH BID [facility] Last Admin: 11/13/18 08:03 Dose: 2 puff Ondansetron HCl (Zofran Inj*) 4 mg IV Q4H PRN PRN Reason: NAUSEA/VOMITING Oxycodone/Acetaminophen (Percocet 5/325 Tab*) 1 tab PO Q4H PRN PRN Reason: PAIN Last Admin: 11/13/18 12:26 Dose: 1 tab Polyethylene Glycol/Electrolytes (Miralax*) 17 gm PO 0800,2100 W[facility]DA Vital Signs - 8 hr 11/13/18 11/13/18 11/13/18 06:06 07:46 08:00 Temperature 97.5 F Pulse Rate 81 Respiratory 16 16 18 Rate Blood Pressure 151/65 (mmHg) O2 Sat by Pulse 96 96 Oximetry 11/13/18 11/13/18 11/13/18 08:05 11:22 12:26 Temperature 97.7 F Pulse Rate 77 Respiratory 18 16 18 Rate Blood Pressure 127/63 (mmHg) O2 Sat by Pulse 94 Oximetry Oxygen Devices in Use Now: Nasal Cannula Appearance: Alert, head partly up in bed. In good spirits. Looks comfortable. Respiratory: Symmetrical Chest Expansion and Respiratory Effort, Clear to Auscultation, Clear to Percussion Cardiovascular: NL Sounds; No Murmurs; No JVD, RRR, No Edema, - Extremities: No Edema, No Clubbing, Cyanosis, - Skin: No Rash or Ulcers, No Nodules or Sclerosis, - Neurological: Alert and Oriented x 3, NL Sensation Result Diagrams: 11/13/18 08:16 11/13/18 08:16 Assess/Plan/Problems-Billing Assessment: - Patient Problems (1) COPD (chronic obstructive pulmonary disease) Current Visit: No Status: Acute Code(s): J44.9 - CHRONIC OBSTRUCTIVE PULMONARY DISEASE, UNSPECIFIED SNOMED Code(s): 43033235 Comment: Continue mometasone/formoterol, albuterol S/P VATS 11/12/18 with resectiion of bleb, pleurodesis. (2) DMII (diabetes mellitus, type 2) Current Visit: No Status: Acute Comment: Increase Lantus to 35 U 11/13. Resume glipizide 11/14 AM, sitagliptin 11/13 PM. (3) HTN (hypertension) Current Visit: No Status: Acute Code(s): I10 - ESSENTIAL (PRIMARY) HYPERTENSION SNOMED Code(s): 49547955 Comment: - Continue carvedilol, hold lisinopril. (4) Dyslipidemia Current Visit: No Status: Acute Code(s): E78.5 - HYPERLIPIDEMIA, UNSPECIFIED SNOMED Code(s): 368441862 Comment: - Continue atorvastatin (replaces home rosuvastatin).
[2018-11-13] MEDS: metFORMIN* 1,000 MG TAB PO SCH (21:19)
[2018-11-13] MEDS: CMCS:SitaGLIPtin (NF) 25 MG TAB PO SCH (21:20)
[2018-11-13] MEDS: Acetaminophen TAB* 325 MG PO PRN (21:20)
[2018-11-13] MEDS: Insulin GLARGINE(*) 1 UNITS UNIT SUBCUT SCH (21:22)
[2018-11-13] MEDS: Polyethylene Glycol 3350* 17 GM PACKET PO SCH (21:26)
[2018-11-14] MEDS: Heparin VIAL(*) 5000 UNITS/ML VIAL (FIVE THOUSAND) SUBCUT SCH ×3 (05:49→22:22)
[2018-11-14] MEDS: Acetaminophen TAB* 325 MG PO PRN ×2 (05:53→12:07)
[2018-11-14] MEDS: Ketorolac INJ* 30 MG/ML 1 ML VIAL IV PRN ×2 (08:22→14:56)
--- NOTE | 2018-11-14 08:46 | PN ---
Progress Note - Progress Note Date of Service: 11/14/18 Note: POD#2 s/p R VATS Reports mild SOB. No N/V. Walked some. AVSS u/j=8601/8h HH=655/24h Lungs: clear with gurgling noted on right; chest tube site clean, redressed with xeroform, no A/L noted. A/P: Doing well s/p R VATS. Leave CT until drainage <100ml/24h.
[2018-11-14] MEDS: Polyethylene Glycol 3350* 17 GM PACKET PO SCH ×2 (10:00→19:57)
[2018-11-14] MEDS: Atorvastatin* 40 MG TAB PO SCH (10:02)
[2018-11-14] MEDS: Aspirin 81 mg CHEW TAB* 81 MG TAB.CHEW PO SCH (10:02)
[2018-11-14] MEDS: Docusate CAP* 100 MG PO SCH ×2 (10:02→19:58)
[2018-11-14] MEDS: Carvedilol TAB* 25 MG PO SCH (10:02)
[2018-11-14] MEDS: metFORMIN* 1,000 MG TAB PO SCH ×2 (10:02→22:22)
[2018-11-14] MEDS: glipiZIDE TAB* 5 MG PO SCH (10:02)
[2018-11-14] MEDS: Insulin LISPRO* 1 UNITS UNIT SUBCUT SCH ×3 (10:03→18:48)
[2018-11-14] MEDS: CMCS:SitaGLIPtin (NF) 25 MG TAB PO SCH ×2 (10:04→22:22)
[2018-11-14] MEDS: Mometasone/Formoter 200/5 MDI INH SCH ×2 (13:44→22:27)
[2018-11-14] MEDS ORDERED: Magnesium Hydroxide LIQ* 30 ML UDC PO ONE (14:53)
--- NOTE | 2018-11-14 14:57 | PN ---
Subjective Date of Service: 11/14/18 Interval History: No BM yet. Some CT-related pain. Walked in [place] today. Good appetite. Objective Active Medications: Acetaminophen (Tylenol Tab*) 650 mg PO Q4H PRN PRN Reason: Pain Or Temperature >101 F Last Admin: 11/14/18 12:07 Dose: 650 mg Albuterol (Ventolin 2.5 Mg/3 Ml Neb.Laura*) 2.5 mg INH Q2H PRN PRN Reason: SOB/WHEEZING Aspirin (Aspirin 81 Mg Chew Tab*) [facility] [place] Admin: 11/14/18 10:02 Dose: 81 mg Atorvastatin Calcium (Lipitor*) [facility] [place] [facility] [place] Admin: 11/14/18 10:02 Dose: 40 mg Carvedilol (Coreg Tab*) [facility] [place] [facility] [place] Admin: 11/14/18 10:02 Dose: 25 mg Dextrose (D50w Syringe 50 Ml*) 12.5 gm IV PUSH .FOR FS < 60 - SS PRN PRN Reason: FS < 60 Docusate Sodium (Colace Cap*) 100 mg PO BID [facility] Last Admin: 11/14/18 10:02 Dose: 100 mg Glipizide (Glucotrol Tab*) [address] [facility] Last Admin: 11/14/18 10:02 Dose: 5 mg Heparin Sodium (Porcine) (Heparin Vial(*)) 5,000 units SUBCUT Q8HR [facility] Last Admin: 11/14/18 05:49 Dose: 5,000 units Hydromorphone HCl (Dilaudid Inj1s*) 0.5 mg IV SLOW PU Q1H PRN PRN Reason: PAIN - SEVERE Sodium Chloride (Ns 0.9% 1000 Ml) 1,000 mls @ 75 mls/hr IV PER RATE [facility] Last Admin: 11/13/18 23:00 Dose: 75 mls/hr Insulin Glargine (Lantus(*)) 35 units SUBCUT BEDTIME [facility] Last Admin: 11/13/18 21:22 Dose: 35 unit Insulin Human Lispro (Humalog*) 0 units SUBCUT AC [facility]; Protocol Last Admin: 11/14/18 10:03 Dose: 2 units Ketorolac Tromethamine (Toradol Inj*) 15 mg IV Q6H PRN PRN Reason: PAIN Stop: 11/14/18 19:29 Last Admin: 11/14/18 08:22 Dose: 15 mg Magnesium Hydroxide (Milk Of Magnesia Liq*) 60 ml PO ONCE ONE Stop: 11/14/18 14:54 Metformin HCl (Glucophage*) 1,000 mg PO BID [facility] Last Admin: 11/14/18 10:02 Dose: 1,000 mg Mometasone Furoate/Formoterol Fumar (Dulera 200/5 Mdi*) 2 puff INH BID [facility] Last Admin: 11/14/18 13:44 Dose: Not Given Ondansetron HCl (Zofran Inj*) 4 mg IV Q4H PRN PRN Reason: NAUSEA/VOMITING Oxycodone/Acetaminophen (Percocet 5/325 Tab*) 1 tab PO Q4H PRN PRN Reason: PAIN Last Admin: 11/13/18 12:26 Dose: 1 tab Polyethylene Glycol/Electrolytes (Miralax*) 17 gm PO 0800,2100 [facility] Last Admin: 11/14/18 10:00 Dose: Not Given Sitagliptin Phosphate (Januvia (Nf)) 50 mg PO BID [facility] Last Admin: 11/14/18 10:04 Dose: 50 mg Vital Signs - 8 hr 11/14/18 11/14/18 11/14/18 07:23 08:04 08:22 Temperature 98.2 F 98.2 F 98.6 F Pulse Rate 83 83 93 Respiratory 18 18 Rate Blood Pressure 153/68 153/68 164/80 (mmHg) O2 Sat by Pulse 93 93 95 Oximetry 11/14/18 11/14/18 11/14/18 08:34 09:08 11:00 Temperature 98.4 F Pulse Rate 85 91 Respiratory 18 26 Rate Blood Pressure 143/66 (mmHg) O2 Sat by Pulse 93 96 Oximetry Oxygen Devices in Use Now: Nasal Cannula Appearance: Supine in bed. In good spirits. Loks comfortable. Eyes: No Scleral Icterus Extremities: No Edema, No Clubbing, Cyanosis, - Skin: No Rash or Ulcers, No Nodules or Sclerosis, - Neurological: Alert and Oriented x 3, NL Sensation Result Diagrams: 11/13/18 08:16 11/13/18 08:16 Assess/Plan/Problems-Billing Assessment: - Patient Problems (1) COPD (chronic obstructive pulmonary disease) Current Visit: No Status: Acute Code(s): J44.9 - CHRONIC OBSTRUCTIVE PULMONARY DISEASE, UNSPECIFIED SNOMED Code(s): 70310063 Comment: Continue mometasone/formoterol, albuterol S/P VATS 11/12/18 with resectiion of bleb, pleurodesis. Discussed with Dr. De Oliveira 11/14/18. (2) DMII (diabetes mellitus, type 2) Current Visit: No Status: Acute Comment: Continuee Lantus 35 U. Continue glipizide, sitagliptin. (3) HTN (hypertension) Current Visit: No Status: Acute Code(s): I10 - ESSENTIAL (PRIMARY) HYPERTENSION SNOMED Code(s): 53705014 Comment: - Continue carvedilol, hold lisinopril. (4) Dyslipidemia Current Visit: No Status: Acute Code(s): E78.5 - HYPERLIPIDEMIA, UNSPECIFIED SNOMED Code(s): 799171646 Comment: - Continue atorvastatin (replaces home rosuvastatin). (5) Constipation Current Visit: Yes Status: Acute Code(s): K59.00 - CONSTIPATION, UNSPECIFIED SNOMED Code(s): 32156129 Comment: Patient refused first 2 scheduled doses of PEG. MOM 60 ml 11/14.
[2018-11-14] MEDS ORDERED: Magnesium Hydroxide LIQ* 30 ML UDC ONE (15:06)
[2018-11-14] MEDS: Insulin GLARGINE(*) 1 UNITS UNIT SUBCUT SCH (22:25)
[2018-11-14] MEDS: oxyCODONE/Acetamin 5/325 MG* TAB PO PRN (22:33)
[2018-11-15] MEDS: NS 0.9% 1000 ML** 1,000 ML IV SCH (01:36)
[2018-11-15] MEDS: Heparin VIAL(*) 5000 UNITS/ML VIAL (FIVE THOUSAND) SUBCUT SCH ×3 (06:55→21:21)
[2018-11-15] MEDS: Polyethylene Glycol 3350* 17 GM PACKET PO SCH ×2 (08:45→21:21)
[2018-11-15] MEDS: oxyCODONE/Acetamin 5/325 MG* TAB PO PRN ×2 (08:45→18:28)
[2018-11-15] MEDS: Docusate CAP* 100 MG PO SCH ×2 (08:46→21:21)
[2018-11-15] MEDS: Carvedilol TAB* 25 MG PO SCH (08:46)
[2018-11-15] MEDS: Atorvastatin* 40 MG TAB PO SCH (08:46)
[2018-11-15] MEDS: Aspirin 81 mg CHEW TAB* 81 MG TAB.CHEW PO SCH (08:47)
[2018-11-15] MEDS: glipiZIDE TAB* 5 MG PO SCH (08:47)
[2018-11-15] MEDS: metFORMIN* 1,000 MG TAB PO SCH ×2 (08:47→21:21)
[2018-11-15] MEDS: CMCS:SitaGLIPtin (NF) 25 MG TAB PO SCH ×2 (08:47→21:20)
[2018-11-15] MEDS: Mometasone/Formoter 200/5 MDI INH SCH ×2 (08:47→19:00)
[2018-11-15] MEDS: Insulin LISPRO* 1 UNITS UNIT SUBCUT SCH ×3 (08:48→16:43)
--- NOTE | 2018-11-15 09:19 | PN ---
Progress Note - Progress Note Date of Service: 11/15/18 Note: POD#3 s/p R VATS Pain controlled. Breathing at baseline. Vital Signs Temp 99.2 F 11/15/18 05:02 Pulse 84 11/15/18 05:02 Resp 16 11/15/18 08:45 BP 156/68 11/15/18 05:02 Pulse Ox 93 11/15/18 05:02 Lungs: CTA B with exp wheeze on R. CT without A/L. Intake & Output 11/14/18 11/15/18 11/15/18 18:59 06:59 18:59 Intake Total 840 3162 Output Total 750 1555 Balance 90 1607 Intake: IV Fluids 1972 Normal Saline 1972 Oral 840 1190 Output: Chest Tube #1 50 Chest Tube #2 180 Urine 700 1375 Other: # Bowel Movements 1 Estimated Stool Amount Large A/P: s/p VATS. Improving. Await decr drainage from tube prior to d/c.
--- NOTE | 2018-11-15 16:32 | PN ---
Progress Note - Progress Note Date of Service: 11/15/18 Note: FS glucose 69 at 7:30 AM today. Lantus dose decreased to 25 U q hs.
[2018-11-15] MEDS: guaiFENesin/CODIEN 100MG-10MG* 5 ML UDC PO PRN (19:09)
[2018-11-15] MEDS ORDERED: Insulin GLARGINE(*) 1 UNITS UNIT SUBCUT SCH (21:00)
[2018-11-16] MEDS: oxyCODONE/Acetamin 5/325 MG* TAB PO PRN ×3 (02:25→17:10)
[2018-11-16] MEDS: guaiFENesin/CODIEN 100MG-10MG* 5 ML UDC PO PRN ×2 (02:25→10:12)
[2018-11-16] MEDS: Heparin VIAL(*) 5000 UNITS/ML VIAL (FIVE THOUSAND) SUBCUT SCH ×2 (05:29→15:01)
[2018-11-16] MEDS: Insulin LISPRO* 1 UNITS UNIT SUBCUT SCH ×3 (08:13→18:02)
[2018-11-16] MEDS: glipiZIDE TAB* 5 MG PO SCH (09:20)
[2018-11-16] MEDS: CMCS:SitaGLIPtin (NF) 25 MG TAB PO SCH (09:20)
[2018-11-16] MEDS: Polyethylene Glycol 3350* 17 GM PACKET PO SCH (09:20)
[2018-11-16] MEDS: Docusate CAP* 100 MG PO SCH (09:20)
[2018-11-16] MEDS: metFORMIN* 1,000 MG TAB PO SCH (09:20)
[2018-11-16] MEDS: Mometasone/Formoter 200/5 MDI INH SCH ×2 (09:20→19:47)
[2018-11-16] MEDS: Atorvastatin* 40 MG TAB PO SCH (09:20)
[2018-11-16] MEDS: Carvedilol TAB* 25 MG PO SCH (09:20)
[2018-11-16] MEDS: Aspirin 81 mg CHEW TAB* 81 MG TAB.CHEW PO SCH (09:20)
--- NOTE | 2018-11-16 10:29 | PN ---
Progress Note - Progress Note Date of Service: 11/16/18 Note: POD#4 s/p VATS Afeb, VS OK Voiding, fariba po's, passed BM Breathing easy, no pain issues Ambulating Chest tube 20 ml since yest afternoon No air leak Lungs well aerated, easy effort Dressing clean Check CXR this AM If OK, remove tube and disch if OK medically.
--- NOTE | 2018-11-16 18:29 | PN ---
Progress Note - Progress Note Date of Service: 11/16/18 Note: Chest xray shows no significant ptx. Chest tube removed w/o incident. Occlusive dsg placed. Instructions reviewed w/ patient. D/c to home this pm.
[2018-11-16 20:19] VITALS: BP 128/46
[2018-11-16] MEDS ORDERED: Insulin GLARGINE(*) 1 UNITS UNIT SUBCUT SCH (21:00)
--- NOTE | 2018-11-18 09:17 | DS ---
CC: Dr. Lozada; Dr. Mildred Robert DISCHARGE SUMMARY: DATE OF ADMISSION: 11/12/18 DATE OF DISCHARGE: 11/16/18 PRINCIPAL ADMITTING DIAGNOSIS: Chronic right pneumothorax. OPERATIVE PROCEDURE ON THIS ADMISSION: Right video thoracoscopy with bleb resection and pleurodesis. COMPLICATIONS: None. HOSPITAL COURSE: Patient is a 68-year-old male who came to the hospital and was taken to the operati ng room, underwent right video thoracoscopy, bleb resection, and pleurodesis on 11/12/18. He was elizabeth ntained on the surgical floor with a chest tube and on oxygen, and after a few days had very nice dec rease in his pleural drainage. He had no air leak. He was ambulating well, eating well. He was voi ding, moving his bowels. Pain control was good. On 11/16/18, the chest tube was removed. His chest x-ray still looked good and he was discharged home, doing well. He will follow up in the office in about a week. [id number]/[facility] #: [id number]
== END 2018-11-16 20:20 | disposition home or self-care (01) | DRG 165 ==
LOC: OR 11:05 → SSU 18:29
PROVIDERS: ADMIT Surgery; ATTEND Surgery
PROC: 0W9940Z Drainage of Right Pleural Cavity with Drainage Device, Percutaneous Endoscopic Approach (ICD-10-PCS; 2018-11-12)
PROC: 3E0L4GC Introduction of Other Therapeutic Substance into Pleural Cavity, Percutaneous Endoscopic Approach (ICD-10-PCS; 2018-11-12)
PROC: 0BBF4ZZ Excision of Right Lower Lung Lobe, Percutaneous Endoscopic Approach (ICD-10-PCS; principal; 2018-11-12 13:15)
DX: J93.81 Chronic pneumothorax (principal); E11.51 Type 2 diabetes mellitus with diabetic peripheral angiopathy without gangrene; J44.9 Chronic obstructive pulmonary disease, unspecified; K59.00 Constipation, unspecified; H10.89 Other conjunctivitis; J93.82 Other air leak; E78.5 Hyperlipidemia, unspecified; I10 Essential (primary) hypertension; Z82.49 Family history of ischemic heart disease and other diseases of the circulatory system; Z90.49 Acquired absence of other specified parts of digestive tract; Z83.3 Family history of diabetes mellitus
CPT/HCPCS: 36415; 71045; 71046; 80048; 85025; 88307; 94640; A9270-GY; J0690; J1644; J1885; J2250; J2704; J2710; J3010; J8540